=== PATIENT | female | born 1935 | race Caucasian/White ===

== ENCOUNTER 2017-03-15 13:41 | Observation (INO) | payer MEDICARE, BC ==
[2017-03-15] MEDS ORDERED: ASPIRIN 81 MG CHEW PO STA (14:01)
[2017-03-15] MEDS ORDERED: NITROGLYCERIN OINT 1 INCH/GM PACKET TOPICAL STA (14:01)
--- NOTE | 2017-03-15 14:04 | ED ---
General Adult HPI - General Chief complaint: Chest Pain Stated complaint: Chest Pain Time Seen by Provider: 03/15/17 13:50 Source: patient, RN notes reviewed Mode of arrival: wheelchair Limitations: no limitations - History of Present Illness Initial comments: Patient is a pleasant 81-year-old female presenting to the emergency department complaining of chest discomfort. Onset of symptoms was just around 20 minutes or so ago. Patient has heaviness in her chest without radiation. No associated dyspnea, nausea, or diaphoresis. Patient did have mild headache earlier in the day however this has resolved. Discomfort at this time is between mild and medium. Patient refuses nitroglycerin pills or pain medicine. - Related Data Home Medications Medication Instructions Recorded Confirmed Aspirin [Adult Low Dose Aspirin EC] 81 mg PO DAILY 03/15/17 03/15/17 Atenolol 25 mg PO BID 03/15/17 03/15/17 Atorvastatin Calcium [Lipitor] 20 mg PO DAILY 03/15/17 03/15/17 Clopidogrel Bisulfate [Plavix] 75 mg PO DAILY 03/15/17 03/15/17 Estrogens, Conjugated [Premarin] 0.3 mg PO MOWEFR 03/15/17 03/15/17 Levothyroxine Sodium [Synthroid] 100 mcg PO DAILY 03/15/17 03/15/17 Losartan Potassium [Cozaar] 25 mg PO DAILY 03/15/17 03/15/17 Multivits-Min/Iron/FA/Lutein 1 tab PO DAILY 03/15/17 03/15/17 [Centrum Silver Women Tablet] Pioglitazone [Actos] 15 mg PO Q2D 03/15/17 03/15/17 Allergies Allergy/AdvReac Type Severity Reaction Status Date / Time Sulfa (Sulfonamide Allergy Rash/Hives Verified 03/15/17 14:27 Antibiotics) Review of Systems ROS Statement: Those systems with pertinent positive or pertinent negative responses have been documented in the HPI. ROS Other: All systems not noted in ROS Statement are negative. Constitutional: Denies: fever Eyes: Denies: eye pain ENT: Denies: ear pain Respiratory: Denies: cough, dyspnea Cardiovascular: Reports: chest pain Endocrine: Denies: fatigue Gastrointestinal: Denies: abdominal pain Genitourinary: Denies: urgency Musculoskeletal: Denies: back pain Skin: Denies: rash Neurological: Reports: headache (Earlier in the day) Past Medical History Past Medical History: Cancer, Chest Pain / Angina, Diabetes Mellitus, Hyperlipidemia, Hypertension, Vascular Disorder History of Any Multi-Drug Resistant Organisms: None Reported Past Surgical History: Cholecystectomy, Coronary Bypass/CABG, Hernia Repair, Hysterectomy Past Psychological History: No Psychological Hx Reported Smoking Status: Never smoker Past Alcohol Use History: None Reported Past Drug Use History: None Reported General Exam Limitations: no limitations General appearance: alert, in no apparent distress Head exam: Present: atraumatic Eye exam: Present: normal appearance, PERRL ENT exam: Present: normal oropharynx Neck exam: Present: normal inspection Respiratory exam: Present: normal lung sounds bilaterally. Absent: chest wall tenderness Cardiovascular Exam: Present: regular rate, normal rhythm Expanded Peripheral pulses: 2+: Radial (R), Radial (L), Posterior Tibialis (R), Posterior Tibialis (L), Dorsalis Pedis (R), Dorsalis Pedis (L) GI/Abdominal exam: Present: soft. Absent: tenderness Extremities exam: Present: normal inspection. Absent: pedal edema, calf tenderness Neurological exam: Present: alert, CN II-XII intact. Absent: motor sensory deficit Psychiatric exam: Present: normal affect, normal mood Skin exam: Absent: rash Course Vital Signs 03/15/17 03/15/17 13:44 14:36 Temperature 98.1 F Pulse Rate 88 72 Respiratory 18 16 Rate Blood Pressure 179/77 132/61 O2 Sat by Pulse 98 99 Oximetry EKG Findings - EKG Comments: EKG Findings:: Normal sinus rhythm at 82. NV 148. QRS 78. QT 378. QTC 441. Normal axis. Normal QRS. Flattened T waves. Medical Decision Making - Medical Decision Making Patient reevaluated and resting comfortably in bed. Patient family updated on results and plan. Dr. Schaffer has been paged for admission for . Admission orders written. Cardiology consult. - Lab Data Result diagrams: 03/15/17 14:00 03/15/17 14:00 Lab Results 03/15/17 03/15/17 03/15/17 Range/Units 14:00 14:00 14:00 WBC 6.2 (3.8-10.6) k/uL RBC 4.32 (3.80-5.40) m/uL Hgb 13.0 (11.4-16.0) gm/dL Hct 40.3 (34.0-46.0) % MCV 93.3 (80.0-100.0) fL MCH 30.0 (25.0-35.0) pg MCHC 32.2 (31.0-37.0) g/dL RDW 14.5 (11.5-15.5) % Plt Count 251 (150-450) k/uL Neutrophils % 67 % Lymphocytes % 21 % Monocytes % 6 % Eosinophils % 4 % Basophils % 1 % Neutrophils # 4.1 (1.3-7.7) k/uL Lymphocytes # 1.3 (1.0-4.8) k/uL Monocytes # 0.4 (0-1.0) k/uL Eosinophils # 0.2 (0-0.7) k/uL Basophils # 0.1 (0-0.2) k/uL PT (9.0-12.0) sec INR (<1.1) APTT (22.0-30.0) sec Sodium 141 (137-145) mmol/L Potassium 4.3 (3.5-5.1) mmol/L Chloride 105 (98-107) mmol/L Carbon Dioxide 27 (22-30) mmol/L Anion Gap 9 mmol/L BUN 28 H (7-17) mg/dL Creatinine 0.76 (0.52-1.04) mg/dL Est GFR (MDRD) Af Amer >60 (>60 ml/min/1.73 sqM) Est GFR (MDRD) Non-Af >60 (>60 ml/min/1.73 sqM) Glucose 144 H (74-99) mg/dL Calcium 10.0 (8.4-10.2) mg/dL Magnesium 1.8 (1.6-2.3) mg/dL Total Bilirubin 0.4 (0.2-1.3) mg/dL AST 31 (14-36) U/L ALT 33 (9-52) U/L Alkaline Phosphatase 89 (38-126) U/L Total Creatine Kinase 38 (30-135) U/L CK-MB (CK-2) 0.6 (0.0-2.4) ng/mL CK-MB (CK-2) Rel Index 1.6 Troponin I <0.012 (0.000-0.034) ng/mL Total Protein 7.3 (6.3-8.2) g/dL Albumin 4.0 (3.5-5.0) g/dL 03/15/17 Range/Units 14:00 WBC (3.8-10.6) k/uL RBC (3.80-5.40) m/uL Hgb (11.4-16.0) gm/dL Hct (34.0-46.0) % MCV (80.0-100.0) fL MCH (25.0-35.0) pg MCHC (31.0-37.0) g/dL RDW (11.5-15.5) % Plt Count (150-450) k/uL Neutrophils % % Lymphocytes % % Monocytes % % Eosinophils % % Basophils % % Neutrophils # (1.3-7.7) k/uL Lymphocytes # (1.0-4.8) k/uL Monocytes # (0-1.0) k/uL Eosinophils # (0-0.7) k/uL Basophils # (0-0.2) k/uL PT 10.0 (9.0-12.0) sec INR 1.0 (<1.1) APTT 22.5 (22.0-30.0) sec Sodium (137-145) mmol/L Potassium (3.5-5.1) mmol/L Chloride (98-107) mmol/L Carbon Dioxide (22-30) mmol/L Anion Gap mmol/L BUN (7-17) mg/dL Creatinine (0.52-1.04) mg/dL Est GFR (MDRD) Af Amer (>60 ml/min/1.73 sqM) Est GFR (MDRD) Non-Af (>60 ml/min/1.73 sqM) Glucose (74-99) mg/dL Calcium (8.4-10.2) mg/dL Magnesium (1.6-2.3) mg/dL Total Bilirubin (0.2-1.3) mg/dL AST (14-36) U/L ALT (9-52) U/L Alkaline Phosphatase (38-126) U/L Total Creatine Kinase (30-135) U/L CK-MB (CK-2) (0.0-2.4) ng/mL CK-MB (CK-2) Rel Index Troponin I (0.000-0.034) ng/mL Total Protein (6.3-8.2) g/dL Albumin (3.5-5.0) g/dL - Radiology Data Radiology results: image reviewed (Chest x-ray shows no acute process) Critical Care Time Critical Care Time: Yes Total Critical Care Time: 31 Disposition Clinical Impression: Unstable angina pectoris Disposition: ADMITTED IP TO THIS [facility] Condition: Serious Time of Disposition: 15:46
[2017-03-15 14:33] LABS: Basophils # (A) 0.1 k/uL (0-0.2); Basophils % (A) 1 %; CH 29.4; CHCM 31.8; Eosinophils # (A) 0.2 k/uL (0-0.7); Eosinophils % (A) 4 %; HCT 40.3 % (34.0-46.0); HDW 2.28; Luc # (Auto) 0.13; Luc % (Auto) 2; Lymphocytes # (A) 1.3 k/uL (1.0-4.8); Lymphocytes % (A) 21 %; MCHC 32.2 g/dL (31.0-37.0); MCV 93.3 fL (80.0-100.0); Mean Platelet Volume 6.9; Monocytes # (A) 0.4 k/uL (0-1.0); Monocytes % (A) 6 %; Neutrophils # (A) 4.1 k/uL (1.3-7.7); Neutrophils % (A) 67 %; RBC 4.32 m/uL (3.80-5.40); RDW 14.5 % (11.5-15.5); WBC 6.2 k/uL (3.8-10.6); WBC (Perox) 6.51
--- NOTE | 2017-03-15 14:33 | XR ---
EXAMINATION TYPE: XR chest 2V DATE OF EXAM: 03/15/2017 2:30 PM COMPARISON: NONE TECHNIQUE: PA and lateral views submitted. HISTORY: Chest pain FINDINGS: The lungs are clear and there is no pneumothorax, pleural effusion, or focal pneumonia. Postsurgica l changes with atherosclerotic change aorta. IMPRESSION: 1. No acute process.
[2017-03-15 14:42] LABS: ALT 33 U/L (9-52); AST 31 U/L (14-36); Alkaline Phosphatase 89 U/L (38-126); Anion Gap 9 mmol/L; Blood Urea Nitrogen 28 mg/dL (7-17); Carbon Dioxide 27 mmol/L (22-30); Chloride 105 mmol/L (98-107); Glucose 144 mg/dL (74-99); Magnesium 1.8 mg/dL (1.6-2.3); Non-African American GFR(MDRD) >60 (>60 ml/min/1.73 sqM); Potassium 4.3 mmol/L (3.5-5.1); Sodium 141 mmol/L (137-145); Total Bilirubin 0.4 mg/dL (0.2-1.3); Total Protein 7.3 g/dL (6.3-8.2)
[2017-03-15 14:43] LABS: Partial Thromboplastin Time 22.5 sec (22.0-30.0)
[2017-03-15 14:55] LABS: Creatine Kinase 38 U/L (30-135)
[2017-03-15 15:09] LABS: Creatine Kinase MB 0.6 ng/mL (0.0-2.4); Troponin I <0.012 ng/mL (0.000-0.034)
[2017-03-15] MEDS ORDERED: HEPARIN SODIUM,PORCINE 5,000 UNIT/ML 1 ML VIAL IV ONE (15:46)
[2017-03-15] MEDS ORDERED: NITROGLYCERIN SL TABS 0.4 MG TAB SUBLINGUAL PRN (15:46)
[2017-03-15] MEDS ORDERED: HEPARIN SODIUM,PORCINE 5,000 UNIT/ML 1 ML VIAL IV PRN (15:46)
[2017-03-15] MEDS ORDERED: HEPARIN SODIUM,PORCINE/D5W PMX 25,000 UNIT in DEXTROSE/WATER 1 500ML.BAG IV SCH (16:00)
[2017-03-15] MEDS: NITROGLYCERIN OINT 1 INCH/GM PACKET TOPICAL SCH (18:55)
[2017-03-15 19:03] LABS: Creatine Kinase 35 U/L (30-135)
[2017-03-15 19:17] LABS: Creatine Kinase MB 0.5 ng/mL (0.0-2.4); Troponin I <0.012 ng/mL (0.000-0.034)
[2017-03-15] MEDS ORDERED: HYDROcodone/APAP 5-325MG 1 EACH TAB PO PRN (21:32)
[2017-03-15] MEDS ORDERED: HYDROmorphone 1 MG/ML 1 ML SYRINGE IVP PRN (21:32)
[2017-03-15] MEDS ORDERED: TEMAZEPAM 15 MG CAP PO PRN (21:32)
[2017-03-15] MEDS ORDERED: ALPRAZolam 0.25 MG TAB PO PRN (21:32)
[2017-03-15 22:44] LABS: Partial Thromboplastin Time 23.7 sec (22.0-30.0)
[2017-03-15 22:58] LABS: Creatine Kinase 35 U/L (30-135)
[2017-03-15] MEDS: ATENOLOL 25 MG TAB PO SCH (23:01)
[2017-03-15] MEDS: PANTOPRAZOLE 40 MG TABLET PO SCH (23:01)
[2017-03-15 23:12] LABS: Creatine Kinase MB 0.5 ng/mL (0.0-2.4); Troponin I <0.012 ng/mL (0.000-0.034)
[2017-03-16] MEDS: CLOPIDOGREL 75 MG TAB PO SCH ×2 (00:19→21:28)
[2017-03-16 01:03] LABS: Appearance,Urine Clear (Clear); Bilirubin,Urine Negative (Negative); Glucose,Urine (UA) Negative (Negative); Ketones,Urine Negative (Negative); Leukocyte Esterase,Urine Negative (Negative); Nitrite,Urine Negative (Negative); Protein,Urine Negative (Negative); Specific Gravity,Urine 1.011 (1.001-1.035); UA Billing (MACRO vs. MICRO) CHEM; Urobilinogen,Urine <2.0 mg/dL (<2.0)
--- NOTE | 2017-03-16 05:33 | HP ---
DATE OF ADMISSION: DATE OF SERVICE: 03/15/2017 CHIEF COMPLAINT: Chest pain. HISTORY OF PRESENT ILLNESS: This 81-year-old woman with a past medical history of CAD, history of diabetes mellitus, hypertension, hyperlipidemia, hypothyroidism, history of vertigo, history of cholecystectomy, history of CAD, CABG being followed by Dr. Coronel in the outpatient setting was complaining of chest heaviness today. The patient initially had dizziness and subsequently patient was supposed to have an appointment with Dr. Katie Dai but because of the heaviness, the patient came to [facility] and heaviness was felt in the anterior part of the chest without much radiation and without sweating or palpitation. Patient apparently was given nitro paste and as well as aspirin, which relieved the pain completely. Now currently the patient also complains of throat discomfort also. There is no history of any fever, rigors, chills. No history of headache, loss of consciousness or seizures. The initial troponins were negative and the EKG on admission showed nonspecific ST-T changes. There is no history of any fever, rigors or chills. PAST MEDICAL HISTORY: History of CAD, history of chest pain, history of diabetes mellitus, hypertension, hypothyroidism, vertigo, CAD, CABG. Medications prior to admission include: 1. Premarin 0.3 mg Monday, Monday, Monday. 2. Multivitamin 1 p.o. daily. 3. Lipitor 20 mg daily. 4. Aspirin 81 mg daily. 5. Actos 15 mg p.o. haim 2 days. 6. Cozaar 25 mg p.o. daily. 7. Synthroid 100 mcg p.o. daily. 8. Plavix 75 mg p.o. daily. 9. Atenolol 25 mg p.o. b.i.d. ALLERGIES: SULFA. FAMILY HISTORY: History of CVA, TIA, and cerebral bleed. SOCIAL HISTORY: No history of smoking. No history of alcohol intake. REVIEW OF SYSTEMS: ENT: No diminishing hearing or diminished vision. CARDIOVASCULAR: As mentioned earlier. RESPIRATORY: As mentioned earlier. GI: No nausea. : No dysuria. NERVOUS SYSTEM: No numbness or weakness. ALLERGY/IMMUNOLOGY: No history of asthma or hayfever. MUSCULOSKELETAL: As mentioned earlier. HEMATOLOGY/ONCOLOGY: No history of anemia. ENDOCRINE: Diabetes mellitus and hypothyroidism present. CONSTITUTIONAL: As mentioned earlier. DERMATOLOGICAL: Negative. RHEUMATOLOGY: Negative. PSYCHIATRY: As mentioned earlier. PHYSICAL EXAMINATION: The patient is alert and oriented x3. Pulse is 67, blood pressure 140/62, respirations 16, temperature 97.5, pulse ox 99% on 2 L. HEENT: Conjunctivae normal. Oral mucosa moist. NECK: No jugular venous distention. No carotid bruit. No lymph node enlargement. CARDIOVASCULAR: S1 and S2, muffled. No S3, no S4. Ejection systolic murmur left sternal border present. RESPIRATORY: Breath sounds diminished at the bases. No rhonchi, no crackles. ABDOMEN: Soft, nontender. No mass palpable. No hepatosplenomegaly. LEGS: No edema, no swelling. NERVOUS SYSTEM: Higher function as mentioned. Moves all 4 limbs. No focal motor or sensory deficit. LYMPHATICS: No lymphadenopathy of neck, axillae or groin. SKIN: No ulcers, rashes or bleeding. LABS: CBC within normal limits. PT, INR is normal. BUN is 28. Glucose 144. ASSESSMENT: 1. Chest heaviness, possible unstable angina. 2. History of coronary artery disease, coronary artery bypass grafting. 3. History of diabetes mellitus type 2. 4. Hypertension, essential. 5. Hyperlipidemia. 6. Hypothyroidism. 7. History of vertigo. 8. History of cholecystectomy. 9. History of hernia repair. 10. History of motion sickness. 11. FULL CODE. RECOMMENDATIONS AND DISCUSSION: This 81-year-old woman who presented with multiple complex medical issues, we will monitor the patient, continue the current medications, unstable angina protocol, symptomatic treatment will be provided nitro p.r.n. Cardiology consultation. Will obtain the reports from the cardiology office and otherwise resume the home medications. Further recommendations to follow. A copy of dictation forwarded to Dr. Coronel who is the primary physician.
[2017-03-16 07:07] LABS: Basophils # (A) 0.1 k/uL (0-0.2); Basophils % (A) 1 %; CH 28.9; CHCM 31.3; Eosinophils # (A) 0.3 k/uL (0-0.7); Eosinophils % (A) 5 %; HCT 36.9 % (34.0-46.0); HDW 2.27; HGB 11.7 gm/dL (11.4-16.0); Luc # (Auto) 0.14; Luc % (Auto) 2; Lymphocytes # (A) 1.7 k/uL (1.0-4.8); Lymphocytes % (A) 30 %; MCH 29.5 pg (25.0-35.0); MCHC 31.7 g/dL (31.0-37.0); Mean Platelet Volume 6.5; Monocytes # (A) 0.4 k/uL (0-1.0); Monocytes % (A) 7 %; Neutrophils # (A) 3.2 k/uL (1.3-7.7); Neutrophils % (A) 56 %; RBC 3.96 m/uL (3.80-5.40); RDW 14.5 % (11.5-15.5); WBC 5.7 k/uL (3.8-10.6); WBC (Perox) 5.68
[2017-03-16 07:20] LABS: Anion Gap 9 mmol/L; Blood Urea Nitrogen 25 mg/dL (7-17); Calcium 9.4 mg/dL (8.4-10.2); Carbon Dioxide 25 mmol/L (22-30); Chloride 108 mmol/L (98-107); Cholesterol 137 mg/dL (<200); Glucose 98 mg/dL (74-99); HDL Cholesterol 57 mg/dL (40-60); Non-African American GFR(MDRD) >60 (>60 ml/min/1.73 sqM); Potassium 4.3 mmol/L (3.5-5.1); Sodium 142 mmol/L (137-145); Triglycerides 113 mg/dL (<150)
--- NOTE | 2017-03-16 08:58 | P.CRDCN ---
History of Present Illness Consult date: 03/16/17 Chief complaint: Chest discomfort History of present illness: This is a pleasant 81-year-old female patient who sees Dr. ELEAZAR Dai as an outpatient with a known history of CAD and prior CABG and stents with unknown details at this point, diabetes, hypertension, and dyslipidemia presented to the hospital complaining of chest discomfort. The patient was on her way to the office yesterday to see Dr. ELEAZAR Dai when she started experiencing chest discomfort and she decided to come to the emergency room. The cardiac enzymes came in to be unremarkable. The EKG showed sinus rhythm with dynamic changes consistent with ischemia. I recommended proceeding with heart catheterization to rule out any severe underlying CAD. Past Medical History Past Medical History: Coronary Artery Disease (CAD), Cancer, Chest Pain / Angina , Diabetes Mellitus, Hyperlipidemia, Hypertension, Thyroid Disorder, Vascular Disorder Additional Past Medical History / Comment(s): vertigo,"arrythmia-takes med to make heart beat stronger/slower", hiatal hernia, vison poor rt eye told" i have a crater" History of Any Multi-Drug Resistant Organisms: None Reported Past Surgical History: Cholecystectomy, Coronary Bypass/CABG, Hernia Repair, Hysterectomy Additional Past Surgical History / Comment(s): colonoscopy/polypectomy(benign), triple vessel cabg, sx for hiatal hernia , not sure if they took appendix w/ hysterectomy, lt cataract removed Past Anesthesia/Blood Transfusion Reactions: Motion Sickness Additional Past Anesthesia/Blood Transfusion Reaction / Comment(s): vertigo Past Psychological History: No Psychological Hx Reported Additional Psychological History / Comment(s): pt is independant, lives with her spouse in a ranch style home total of 2 steps. no pets. they are snowbirds to [place] yearly. no outside services. has a walker if needed Smoking Status: Never smoker Past Alcohol Use History: None Reported Past Drug Use History: None Reported - Past Family History Mother Family Medical History: CVA/TIA Father Additional Family Medical History / Comment(s): cerebral bleed Medications and Allergies Home Medications Medication Instructions Recorded Confirmed Type Aspirin [Adult Low Dose Aspirin EC] 81 mg PO DAILY 03/15/17 03/15/17 History Atenolol 25 mg PO BID 03/15/17 03/15/17 History Atorvastatin Calcium [Lipitor] 20 mg PO DAILY 03/15/17 03/15/17 History Clopidogrel Bisulfate [Plavix] 75 mg PO DAILY 03/15/17 03/15/17 History Estrogens, Conjugated [Premarin] 0.3 mg PO MOWEFR 03/15/17 03/15/17 History Levothyroxine Sodium [Synthroid] 100 mcg PO DAILY 03/15/17 03/15/17 History Losartan Potassium [Cozaar] 25 mg PO DAILY 03/15/17 03/15/17 History Multivits-Min/Iron/FA/Lutein 1 tab PO DAILY 03/15/17 03/15/17 History [Centrum Silver Women Tablet] Pioglitazone [Actos] 15 mg PO Q2D 03/15/17 03/15/17 History Allergies Allergy/AdvReac Type Severity Reaction Status Date / Time Sulfa (Sulfonamide Allergy Rash/Hives Verified 03/15/17 14:27 Antibiotics) Physical Exam Vitals: Vital Signs Temp Pulse Pulse Resp BP BP Pulse Ox 03/16/17 04:00 98.5 F 67 18 142/70 96 03/16/17 00:00 14 03/15/17 20:00 14 03/15/17 19:47 98.7 F 83 14 133/71 96 03/15/17 18:00 97.7 F 69 16 148/68 98 03/15/17 17:48 97.5 F L 67 16 140/62 99 03/15/17 16:48 97.8 F 65 16 144/66 100 03/15/17 16:00 98.6 F 65 16 155/67 98 Intake and Output 03/15/17 03/16/17 03/16/17 22:59 06:59 14:59 Intake Total 240 269.036 Balance 240 269.036 Intake: Intake, IV Titration 269.036 Amount Heparin Sodium,Porcine/ 269.036 D5w Pmx 25,000 unit In Dextrose/Water 1 500ml. bag @ 12 UNITS/KG/HR 19. 59 mls/hr IV .Q24H [facility] Rx #:[id number] Oral 240 Other: # Voids 1 Weight 81.647 kg - Constitutional General appearance: no acute distress - Respiratory Respiratory: bilateral: CTA - Cardiovascular Rhythm: regular Heart sounds: normal: S1, S2 Results 03/16/17 06:43 03/16/17 06:43 Cardiac Enzymes 03/15/17 03/15/17 Range/Units 18:09 22:08 CK-MB (CK-2) 0.5 0.5 (0.0-2.4) ng/mL Troponin I <0.012 <0.012 (0.000-0.034) ng/mL Coagulation 03/15/17 03/15/17 03/16/17 Range/Units 18:09 22:08 06:48 APTT 22.8 23.7 24.4 (22.0-30.0) sec Lipids 03/16/17 Range/Units 06:43 Triglycerides 113 (<150) mg/dL Cholesterol 137 (<200) mg/dL HDL Cholesterol 57 (40-60) mg/dL CBC 03/16/17 Range/Units 06:43 WBC 5.7 (3.8-10.6) k/uL RBC 3.96 (3.80-5.40) m/uL Hgb 11.7 (11.4-16.0) gm/dL Hct 36.9 (34.0-46.0) % Plt Count 229 (150-450) k/uL Comprehensive Metabolic Panel 03/16/17 Range/Units 06:43 Sodium 142 (137-145) mmol/L Potassium 4.3 (3.5-5.1) mmol/L Chloride 108 H (98-107) mmol/L Carbon Dioxide 25 (22-30) mmol/L BUN 25 H (7-17) mg/dL Creatinine 0.77 (0.52-1.04) mg/dL Glucose 98 (74-99) mg/dL Calcium 9.4 (8.4-10.2) mg/dL Current Medications Generic Name Dose Route Start Last Admin Trade Name Freq PRN Reason Stop Dose Admin Hydrocodone Bitart/Acetaminophen 1 each 03/15/17 21:32 [place] 5-325 PO Q6HR PRN Pain Alprazolam 0.25 mg 03/15/17 21:32 03/16/17 00:22 Xanax PO 0.25 mg TID PRN Administration Anxiety Aspirin 325 mg 03/16/17 09:00 Aspirin PO DAILY [facility] Atenolol 25 mg 03/15/17 21:00 03/15/17 23:01 Tenormin PO Not Given BID [facility] Atorvastatin Calcium 20 mg 03/16/17 09:00 Lipitor PO DAILY [facility] Clopidogrel Bisulfate 75 mg 03/15/17 23:15 03/16/17 00:19 Plavix PO 75 mg HS LOW Administration Estrogens Conjugated 0.3 mg 03/17/17 09:00 Premarin PO MOWEFR [facility] Heparin Sodium (Porcine) 0 unit 03/15/17 15:46 03/16/17 06:25 Heparin IV 4,000 unit Q6HR PRN Administration Low PTT Protocol Hydromorphone HCl 0.5 mg 03/15/17 21:32 Dilaudid IVP Q6HR PRN Severe Pain Heparin Sodium/Dextrose 25,000 500 mls @ 19.59 mls/hr 03/15/17 16:00 06:25 unit/ IV Solution IV 14.94 units/kg/hr .Q24H LOW 24.4 mls/hr Protocol Titration 12 UNITS/KG/HR Levothyroxine Sodium 100 mcg 03/16/17 06:30 Synthroid PO 0630 [facility] Losartan Potassium 25 mg 03/16/17 09:00 Cozaar PO DAILY [facility] Multivitamins 1 each 03/16/17 12:00 Theragran PO DAILY@1200 [facility] Nitroglycerin 1 inch 03/15/17 18:00 03/15/17 18:55 Nitro-Bid Oint TOPICAL Not Given Q6HR [facility] Nitroglycerin 0.4 mg 03/15/17 15:46 03/15/17 20:51 Nitrostat SUBLINGUAL 0.4 mg Q5M PRN Administration Chest Pain Pantoprazole Sodium 40 mg 03/15/17 21:45 03/15/17 23:01 Protonix PO 40 mg [id number] [facility] Administration Pioglitazone HCl 15 mg 03/17/17 09:00 Actos PO Q2D [facility] Sodium Chloride 10 ml 03/15/17 21:00 03/16/17 00:19 Saline Flush IV Not Given BID [facility] Temazepam 15 mg 03/15/17 21:32 Restoril PO HS PRN Insomnia Intake and Output 03/15/17 03/16/17 03/16/17 22:59 06:59 14:59 Intake Total 240 269.036 Balance 240 269.036 Intake: Intake, IV Titration 269.036 Amount Heparin Sodium,Porcine/ 269.036 D5w Pmx 25,000 unit In Dextrose/Water 1 500ml. bag @ 12 UNITS/KG/HR 19. 59 mls/hr IV .Q24H [facility] Rx #:[id number] Oral 240 Other: # Voids 1 Weight 81.647 kg 03/16/17 06:43 03/16/17 06:43 Assessment and Plan Plan: Assessment #1 chest discomfort #2 abnormal EKG concerning for ischemia #3 multiple risk factors for CAD Plan #1 proceeding with heart catheterization #2 further recommendation to follow that
[2017-03-16] MEDS ORDERED: ASPIRIN 325 MG TAB PO SCH (09:00)
[2017-03-16] MEDS ORDERED: ATORVASTATIN 20 MG TAB PO SCH (09:00)
[2017-03-16] MEDS ORDERED: CLOPIDOGREL 75 MG TAB PO SCH (09:00)
[2017-03-16] MEDS ORDERED: SODIUM CHLORIDE 0.9% 1,000 ML in EMPTY BAG 1 BAG IV ONE (09:25)
[2017-03-16] MEDS ORDERED: ALPRAZolam 0.25 MG TAB PO PRN (09:25)
[2017-03-16] MEDS ORDERED: ALPRAZolam 0.5 MG TAB PO PRN (09:25)
[2017-03-16] MEDS ORDERED: ASPIRIN 325 MG TAB PO STA (09:25)
[2017-03-16] MEDS ORDERED: ATORVASTATIN 80 MG TAB PO STA (09:25)
[2017-03-16] MEDS: NITROGLYCERIN OINT 1 INCH/GM PACKET TOPICAL SCH ×3 (10:07→20:38)
[2017-03-16] MEDS: ATENOLOL 25 MG TAB PO SCH ×2 (10:12→21:28)
[2017-03-16] MEDS: LEVOTHYROXINE 100 MCG TAB PO SCH (10:12)
[2017-03-16] MEDS: PANTOPRAZOLE 40 MG TABLET PO SCH (10:12)
[2017-03-16] MEDS: LOSARTAN 25 MG TAB PO SCH (10:13)
[2017-03-16] MEDS ORDERED: LIDOCAINE 2% INJ 20 MG/ML (20 ML MDV) ONE (10:49)
[2017-03-16] MEDS ORDERED: MIDAZOLAM 2 MG/2 ML VIAL ONE (10:50)
[2017-03-16] MEDS ORDERED: diphenhydrAMINE 50 MG/ML 1 ML VIAL ONE (10:50)
[2017-03-16] MEDS ORDERED: MIDAZOLAM 2 MG/2 ML VIAL IVP ONE (10:55)
[2017-03-16] MEDS ORDERED: diphenhydrAMINE 50 MG/ML 1 ML VIAL IVP ONE (10:55)
[2017-03-16] MEDS ORDERED: LIDOCAINE 2% INJ 20 MG/ML SQ ONE (10:58)
[2017-03-16] MEDS ORDERED: RX INFO: IV CONTRAST WAS GIVEN 1 EACH MISC MISCELLANE PRN ×2 (11:18→11:36)
[2017-03-16] MEDS ORDERED: HYDROmorphone 2 MG/ML 1 ML SYRINGE ONE (11:23)
[2017-03-16] MEDS ORDERED: HYDROmorphone 2 MG/ML 1 ML SYRINGE IVP ONE (11:25)
[2017-03-16] MEDS ORDERED: SODIUM CHLORIDE 0.9% 1,000 ML IV ONE (11:26)
[2017-03-16] MEDS ORDERED: IOHEXOL 350 MG/ML 100 ML BOTTLE INJ ONE (11:26)
[2017-03-16] MEDS ORDERED: MULTIVITAMINS, THERA 1 EACH TAB PO SCH (12:00)
[2017-03-16 12:05] VITALS: RESP 16
[2017-03-16] MEDS: NITROGLYCERIN SL TABS 0.4 MG TAB SUBLINGUAL PRN ×2 (12:20→12:27)
[2017-03-16] MEDS: SODIUM CHLORIDE 0.9% 1,000 ML IV SCH (12:45)
--- NOTE | 2017-03-16 13:12 | CT ---
EXAMINATION TYPE: CT angio chest DATE OF EXAM: 03/16/2017 1:05 PM COMPARISON: NONE HISTORY: Chest pressure, elevated d dimer CT DLP: 521 mGycm CONTRAST: CT chest with contrast and 3D reconstruction with MIP imaging is performed with IV Contrast, patient injected with 80 mL of Visipaque 320. Contrast-enhanced CT of the chest was performed through the course of the pulmonary arteries with mary g and mediastinal window settings submitted. 3D reconstruction with MIP imaging was also performed. PULMONARY ARTERIES: The pulmonary arteries and their major tributaries are patent. I do not see lindsey dence for sizable filling defect to suggest pulmonary embolic process. LUNGS: The lungs are clear and free of consolidation. Nonspecific groundglass infiltrates. No evidenc e for atelectasis. No pulmonary nodule or mass is detected. No pleural effusion. MEDIASTINUM: Mild ectasia thoracic aorta without aneurysm. Atheromatous change. No evidence for disse ction. Coronary artery calcifications. The heart is mildly enlarged. No evidence for mediastinal mas s. No mediastinal lymph nodes greater than 1cm. HILAR STRUCTURES: No evidence for mass. No hilar lymph nodes greater than 1 cm. UPPER ABDOMEN: No significant abnormality is seen. IMPRESSION: 1. No evidence for Pulmonary embolism at this time. 2. Thoracic aorta fails demonstrate evidence for dissection or aneurysm.
--- NOTE | 2017-03-16 21:48 | CC ---
DATE OF SERVICE: 03/16/2017 PROCEDURE: Left heart catheterization, coronary angiography and selective injection of bypass grafts. PERFORMED BY: Dr. Katie Dai. CLINICAL INFORMATION: Mrs. Eloina Patel is an 81-year-old elderly lady with a type 2 diabetes, hypertension, hyperlipidemia and CAD with a previous aortocoronary bypass surgery performed in March 2013 with a HOBSON to LAD and 2 vein grafts to the 2 branches of circumflex coronary artery. At that time, RCA was dominant disease-free. Left main was 70%. She had a significant LAD lesion as well in 2 areas. She has been doing fairly well, but came to the hospital yesterday. On her way to see me in the office, she had developed more chest pain, came to the hospital. Troponins are negative, but EKG revealed some ST and T wave abnormality in lateral leads. Given this, she was advised coronary angiography. There was no significant troponin elevation. PROCEDURE NOTE: Under local anesthesia and strict aseptic precautions, a 6-Portuguese introducer was placed in the right femoral artery. Standard left Negin catheter was used to perform selective coronary angiography of the left system. A KYLEE catheter was used to perform selective coronary angiography of the RCA, HOBSON as well as the vein graft to the obtuse marginal 1. An AR2 catheter was used to perform the selective injection of the stump to the second obtuse marginal. LV gram was not performed. LV pressures were checked. Patient then had a Perclose device to secure hemostasis, developed some oozing and therefore a FemoStop was applied. She was also advised to have a CT angiography to rule out pulmonary embolism and she will have that procedure today. CARDIAC CATHETERIZATION FINDINGS: The left ventricular end-diastolic pressure was 18 mmHg without any gradient across the aortic valve. CORONARY ANGIOGRAPHIC FINDINGS: Left main coronary artery: There is an ostial 70% left main, beyond which the caliber improves and bifurcates into LAD and circumflex. The left main therefore has an ostial 70% lesion. Left anterior descending coronary artery: This vessel has 2 tight lesions and then the vessel is totally occluded in the mid portion without much antegrade flow. Left posterior circumflex coronary artery: Technically, a nondominant vessel; gives off 2 obtuse marginal branches. The first obtuse marginal has retrograde filling of the vein graft. Second obtuse marginal, she he has a stump that is also evident, but the stump does not flow much in the retrograde direction. Right coronary artery: Dominant vessel, minor irregularities. No significant disease. Distally it bifurcates into larger PDA and small PLV, both of which supply a sizable amount of myocardium. Saphenous vein graft to the circumflex marginal 1: This graft is widely patent, is somewhat small in size, but the flow is a brisk. It seems to opacify the entire obtuse marginal branch. There is some competitive flow that is evident. However, it fills up the entire first obtuse marginal all the way to the periphery and obtuse marginal itself has minor diffuse irregularities. Saphenous vein graft to the second obtuse marginal branch of circumflex: This graft appears to be totally occluded and is seen as a stump without much antegrade flow. Left internal mammary artery graft to LAD: This graft is widely patent with a very good flow throughout the entire graft at the origin and insertion site. There is no significant disease and the opacified LAD is also free of significant disease, gives off septal branches, runs all the way to the apex, supplies a sizable amount of myocardium. The HOBSON graft to LAD is therefore widely patent with good flow. LEFT VENTRICULOGRAM: This was not performed. FINAL IMPRESSION: This patient has a total occlusion of vein graft to the second obtuse marginal. The first obtuse marginal graft is patent with some competitive flow. Left internal mammary artery to left anterior descending artery is widely patent. Right coronary artery is dominant and disease-free. Filling pressures are mildly elevated, but left ventriculogram was not performed. RECOMMENDATIONS: Findings were discussed with the patient and family. I am recommending continued medical therapy with risk factor modification. The vein graft that is occluded to the second obtuse marginal still has good flow antegrade from the [place] circulation. This was explained to the patient and family. The HOBSON is widely patent. Given the fact patient had chest pain and D-dimer elevation, even though the pain did not seem pleuritic, are suggestive of pulmonary embolism. Given the elevated D-dimer and relatively sedentary status, I am recommending a CT angiography to be performed. The patient received about 80 mL of contrast by me and she will receive another [address] angiography. This was explained to the patient and family and she will have the procedure done today. Moderate conscious sedation was provided for a total duration of 35 minutes. The patient tolerated it very well and she was monitored closely.
--- NOTE | 2017-03-16 21:50 | LTR ---
March 16, 2017 RE: AmandaEloina Dear Dr. Coronel: Thank you for allowing me to participate in the care of Mrs. Patel. I am pleased to report to you that she does not have any significant CAD that requires intervention. The second obtuse marginal graft closure is probably because of competitive flow and we will pursue medical therapy. However, I am recommending a CT angiography to rule out pulmonary embolism. I expect the patient will be discharged tomorrow if she remains stable. She will also be hydrated and I will check a CBC and BMP in the morning as well. Thank you for your referral and please do call for questions. With kindest regards. Sincerely yours, JANET YU MD
[2017-03-17] MEDS: NITROGLYCERIN OINT 1 INCH/GM PACKET TOPICAL SCH ×2 (01:26→06:47)
[2017-03-17] MEDS: SODIUM CHLORIDE 0.9% 1,000 ML IV SCH (01:26)
[2017-03-17 04:15] VITALS: PULSE 64
[2017-03-17] MEDS: LEVOTHYROXINE 100 MCG TAB PO SCH (06:47)
[2017-03-17] MEDS: PANTOPRAZOLE 40 MG TABLET PO SCH (06:47)
[2017-03-17 07:12] LABS: Basophils % (A) 1 %; CHCM 30.8; Eosinophils # (A) 0.2 k/uL (0-0.7); Eosinophils % (A) 4 %; HDW 2.29; HGB 11.5 gm/dL (11.4-16.0); Hypochromasia Slight; Luc # (Auto) 0.12; Luc % (Auto) 2; Lymphocytes # (A) 1.2 k/uL (1.0-4.8); Lymphocytes % (A) 21 %; MCH 29.4 pg (25.0-35.0); MCV 94.9 fL (80.0-100.0); Mean Platelet Volume 6.4; Monocytes # (A) 0.4 k/uL (0-1.0); Monocytes % (A) 7 %; Neutrophils # (A) 3.9 k/uL (1.3-7.7); Neutrophils % (A) 66 %; RDW 14.4 % (11.5-15.5); WBC 5.9 k/uL (3.8-10.6); WBC (Perox) 5.88
[2017-03-17 07:22] LABS: Anion Gap 8 mmol/L; Blood Urea Nitrogen 17 mg/dL (7-17); Calcium 8.7 mg/dL (8.4-10.2); Carbon Dioxide 21 mmol/L (22-30); Chloride 110 mmol/L (98-107); Glucose 90 mg/dL (74-99); Non-African American GFR(MDRD) >60 (>60 ml/min/1.73 sqM); Potassium 4.3 mmol/L (3.5-5.1); Sodium 139 mmol/L (137-145)
[2017-03-17 07:46] VITALS: BP 135/54; TEMP 98.1
--- NOTE | 2017-03-17 08:25 | P.PN ---
Subjective Principal diagnosis: Progressive dyspnea This is a pleasant 81-year-old female patient who sees Dr. ELEAZAR Dai as an outpatient with a known history of CAD and prior CABG and stents with unknown details at this point, diabetes, hypertension, and dyslipidemia presented to the hospital complaining of chest discomfort. The patient was on her way to the office yesterday to see Dr. ELEAZAR Dai when she started experiencing chest discomfort and she decided to come to the emergency room. The cardiac enzymes came in to be unremarkable. The EKG showed sinus rhythm with dynamic changes consistent with ischemia. The patient underwent a heart catheterization by Dr. ELEAZAR Dai and that showed occluded vein graft to first obtuse marginal branch. The decision was to treat the patient medically. She underwent a CTA of the chest which showed no PE. The heart catheterization also showed elevated left ventricular diastolic pressure. We will follow-up with with the echocardiogram which was performed today. I am going to start the patient on diuretics with Lasix by mouth in view of the elevated LVEDP. If the echo showed no significant finding the patient can be discharged home. Objective - Vital Signs Vital signs: Vital Signs Temp 98.1 F 03/17/17 07:45 Pulse 64 03/17/17 07:45 Resp 16 03/17/17 07:45 BP 135/54 03/17/17 07:45 Pulse Ox 97 03/17/17 07:45 Intake & Output 03/16/17 03/17/17 03/17/17 18:59 06:59 18:59 Intake Total 490 Balance 490 Intake: IV 250 Oral 240 Other: Voiding Method Toilet Toilet # Voids 1 - Constitutional General appearance: Present: no acute distress - Respiratory Respiratory: bilateral: CTA - Cardiovascular Rhythm: regular Heart sounds: normal: S1, S2 - Labs CBC & Chem 7: 03/17/17 06:48 03/17/17 06:48 Labs: Abnormal Lab Results - Last 24 Hours (Table) 03/17/17 Range/Units 06:48 Chloride 110 H (98-107) mmol/L Carbon Dioxide 21 L (22-30) mmol/L Assessment and Plan Plan: Assessment #1 chest discomfort #2 abnormal EKG concerning for ischemia #3 multiple risk factors for CAD Plan #1 she underwent a heart catheterization which showed occluded vein graft to OM #2 the computed tomography scan of the chest showed no PE #3 add Lasix to the current medical treatment #4 follow-up with the echocardiogram
[2017-03-17] MEDS: ATENOLOL 25 MG TAB PO SCH (08:51)
[2017-03-17] MEDS: LOSARTAN 25 MG TAB PO SCH (08:54)
[2017-03-17] MEDS ORDERED: ESTROGENS, CONJUGATED 0.3 MG TAB PO SCH (09:00)
[2017-03-17] MEDS ORDERED: ASPIRIN 325 MG TAB PO SCH (09:00)
[2017-03-17] MEDS ORDERED: PIOGLITAZONE 15 MG TAB PO SCH (09:00)
[2017-03-17] MEDS ORDERED: FUROSEMIDE 40 MG TAB PO SCH (09:00)
[2017-03-17] MEDS ORDERED: ATORVASTATIN 20 MG TAB PO SCH (09:00)
--- NOTE | 2017-03-17 10:20 | DS ---
DATE OF ADMISSION: 03/15/2017 DATE OF DISCHARGE: FINAL DIAGNOSES: 1. Possibly musculoskeletal or coronary vessel spasm, status post cardiac catheterization. 2. History of coronary artery disease, coronary artery bypass grafting. 3. History of diabetes mellitus type 2. 4. Myocardial infarction ruled out. 5. Hypertension, essential. 6. Hyperlipidemia. 7. Hypothyroidism. 8. History of vertigo. 9. History of cholecystectomy. 10. History of hernia repair. 11. History of motion sickness. 12. FULL CODE. DISCHARGE DISPOSITION: The patient will be discharged in stable condition with guarded prognosis. Discharge cleared by Cardiology. HISTORY OF PRESENT ILLNESS: This 81-year-old woman with a past medical history of multiple medical problems admitted with chest heaviness, myocardial infarction ruled out. The patient was monitored closely. Patient underwent cardiac catheterization, which did not show acute disease. Final report is pending at this time. Otherwise, the patient also had chest CTA, which showed no evidence of pulmonary embolism and thoracic aorta fails to demonstrate any evidence for dissection or aneurysm. On exam, vitals are stable. CARDIOVASCULAR: S1 and S2 soft. ABDOMEN: Soft. NERVOUS SYSTEM: No focal deficits. I recommended empiric treatment and continue to follow up in the outpatient setting and also with Cardiology. DISCHARGE ADVICE: 1. Diet is cardiac. 2. Activity limited until followup. 3. Follow up with Dr. Katie Dai in one week. 4. Follow up with Dr. Coronel in 2 to 3 days. 5. Follow-up labs with Dr. Coronel. MEDICATIONS: 1. Ecotrin 81 mg p.o. daily. 2. Atenolol 25 mg p.o. b.i.d. 3. Lipitor 20 mg p.o. daily. 4. Plavix 75 mg p.o. daily. 5. Conjugated estrogens 0.3 mg p.o. Monday, Monday, Monday. 6. Synthroid 100 mcg p.o. daily. 7. Cozaar 25 mg p.o. daily. 8. Multivitamins 1 p.o. daily. 9. Nitrostat 0.4 sublingual p.r.n. 10. Protonix 40 mg p.o. daily. 11. Actos 15 mg p.o. q.2 days. Once again, the patient will be discharged in stable condition with guarded prognosis.
--- NOTE | 2017-03-17 11:51 | ECHOF ---
Referral Reason:CAD, assess LV FX, S/P CABG. ACS MEASUREMENTS -------- HEIGHT: 162.6 cm WEIGHT: 81.7 kg BP: 151/56 IVSd: 1.3 cm (0.6 - 1.1) LVIDd: 4.0 cm (3.9 - 5.3) LVPWd: 1.2 cm (0.6 - 1.1) IVSs: 1.9 cm LVIDs: 2.5 cm LVPWs: 1.8 cm LAESV Index (A-L): 22.37 ml/m Ao Diam: 3.4 cm (2.0 - 3.7) AV Cusp: 2.0 cm (1.5 - 2.6) LA Diam: 2.8 cm (2.7 - 3.8) MV EXCURSION: 14.967 mm (> 18.000) MV EF SLOPE: 53 mm/s (70 - 150) EPSS: 0.6 cm MV E Vernon: 0.92 m/s MV DecT: 372 ms MV A Vernon: 1.39 m/s MV E/A Ratio: 0.66 RAP: 5.00 mmHg RVSP: 19.78 mmHg FINDINGS -------- Sinus rhythm. This was a technically adequate study. Left ventricular wall thickness is normal. Overall left ventricular systolic function is normal with, an EF between 60 - 65 %. The right ventricle is normal in size and function. Normal LA size by volume 22+/-6 ml/m2. The right atrium is normal in size. Aortic valve is trileaflet and is mildly thickened. There is no evidence of aortic regurgitation. There is no evidence of aortic stenosis. The mitral valve leaflets are mildly thickened. Mild mitral annular calcification present. There is trace mitral regurgitation. Trace tricuspid regurgitation present. There is no evidence of pulmonary hypertension. The right ventricular systolic pressure, as measured by Doppler, is 19.78mmHg. Pulmonic valve appears structurally normal. The aortic root size is normal. The ascending aorta is mildly dilated measuring up to 3.7cm. There is no pericardial effusion. CONCLUSIONS -------- 1. Sinus rhythm. 2. The right ventricular systolic pressure, as measured by Doppler, is 19.78mmHg. 3. The aortic root size is normal. 4. The ascending aorta is mildly dilated measuring up to 3.7cm. 5. There is no pericardial effusion. 6. Overall left ventricular systolic function is normal with, an EF between 60 - 65 %. 7. Normal LA size by volume 22+/-6 ml/m2. 8. Aortic valve is trileaflet and is mildly thickened. 9. The mitral valve leaflets are mildly thickened. 10. Mild mitral annular calcification present. 11. There is trace mitral regurgitation. 12. Trace tricuspid regurgitation present. 13. There is no evidence of pulmonary hypertension. CHERRY SORTER: Almas Reza RDCS
--- NOTE | 2017-03-18 10:13 | PN ---
DATE OF SERVICE: 03/16/2017 This is an 81-year-old woman with a past medical history of multiple medical problems admitted with chest pain, myocardial infarction ruled out, Cardiology performed cardiac catheterization that showed some occluded graft but otherwise medical treatment was required. No chest pain, no palpitation, no fever. On exam, alert and oriented x3. The pulse is 58, blood pressure 127/54, respirations 16, temperature is 98.1, pulse ox is 96% on room air. HEENT: Conjunctivae normal. NECK: Normal. CARDIOVASCULAR: S1, S2, muffled. RESPIRATORY: Breath sounds diminished at the bases. No rhonchi, no crackles. Abdomen is soft, nontender. LEGS: No edema, no swelling. NERVOUS SYSTEM: No focal deficits. LABS: CBC within normal limits, sodium 139, potassium 4.3. ASSESSMENT: 1. Chest pain, possible musculoskeletal pain, possible coronary vessel spasm, status post cardiac catheterization. 2. History of coronary artery disease, coronary artery bypass grafting. 3. History of diabetes mellitus type 2. 4. Myocardial infarction ruled out. 5. Hypertension, essential. 6. Hyperlipidemia. 7. Hypothyroidism. 8. History of vertigo. 9. History of cholecystectomy. 10. History of hernia repair. 11. History of motion sickness. 12. FULL CODE. RECOMMENDATION: Recommend to continue with the current medication, continue with symptomatic treatment. Otherwise, I would recommend a CTA as recommended by Cardiac Surgery. Nitro p.r.n. See orders for further details. Further recommendations to follow.
--- NOTE | 2017-03-21 14:51 | DS ---
DATE OF ADMISSION: 03/15/2017 DATE OF DISCHARGE: 03/17/2017 DATE OF SERVICE: 03/17/2017 This 81-year-old woman was admitted with chest pain, possibly musculoskeletal or even could be muscle spasm. Seen and evaluated the patient previously. Please refer to my previous dictation yesterday for complete list of diagnosis. On exam, vitals are stable. CARDIOVASCULAR SYSTEM: S1, S2, muffled. ABDOMEN: Soft. NERVOUS SYSTEM: No focal deficits. Please refer to the previous dictation for list of medications. Please add Lasix as recommended by Cardiology.
== END 2017-03-17 13:07 | disposition home or self-care (01) ==
LOC: EC 13:41 → 3OBS 15:46
PROVIDERS: ADMIT Hospitalist; ATTEND Hospitalist
DX: I25.810 Atherosclerosis of coronary artery bypass graft(s) without angina pectoris (principal); R07.9 Chest pain, unspecified; Z95.1 Presence of aortocoronary bypass graft; E11.9 Type 2 diabetes mellitus without complications; I10 Essential (primary) hypertension; E03.9 Hypothyroidism, unspecified; Z79.82 Long term (current) use of aspirin; Z79.899 Other long term (current) drug therapy; Z79.02 Long term (current) use of antithrombotics/antiplatelets; Z79.890 Hormone replacement therapy; Z79.84 Long term (current) use of oral hypoglycemic drugs; Z88.2 Allergy status to sulfonamides; E78.5 Hyperlipidemia, unspecified; I25.2 Old myocardial infarction; Z90.49 Acquired absence of other specified parts of digestive tract; Z95.5 Presence of coronary angioplasty implant and graft; I25.82 Chronic total occlusion of coronary artery; I87.8 Other specified disorders of veins
CPT/HCPCS: 96366 ×2; 96376; 96365; 99291; 36415; 93005; 93306; 93459; 85379; 80061; 80053; 80048 ×2; 82550; 82553; 83735; 84484; 85025 ×3; 85610; 85730 ×2; 81003; 71020; 71275; G0378 ×3; C1894; C1769 ×2; C1760; J2001; J2250; J1170; J1200; J1644 ×3; Q9967 ×2

== ENCOUNTER 2018-03-28 06:25 | Observation (INO) | payer MEDICARE, BC ==
[2018-03-28] MEDS ORDERED: SODIUM CHLORIDE 0.9% 500 ML IV STA (07:16)
[2018-03-28] MEDS ORDERED: SODIUM CHLORIDE 0.9% 1,000 ML IV STA (07:16)
[2018-03-28 07:19] LABS: Basophils % (A) 0 %; Eosinophils % (A) 0 %; HCT 39.7 % (34.0-46.0); HGB 12.9 gm/dL (11.4-16.0); Lymphocytes % (A) 18 %; MCH 28.5 pg (25.0-35.0); MCHC 32.4 g/dL (31.0-37.0); Mean Platelet Volume 6.8; Monocytes # (A) 0.2 k/uL (0-1.0); Monocytes % (A) 3 %; Neutrophils # (A) 4.3 k/uL (1.3-7.7); Neutrophils % (A) 78 %; Platelet Count 253 k/uL (150-450); RBC 4.51 m/uL (3.80-5.40); WBC 5.5 k/uL (3.8-10.6)
--- NOTE | 2018-03-28 07:21 | ED ---
Arrhythmia/Palpitations HPI - General Chief Complaint: Arrhythmia/Palpitations Stated Complaint: Irreg heartbeat Time Seen by Provider: 03/28/18 07:00 Source: patient, family, RN notes reviewed Mode of arrival: ambulatory Limitations: no limitations - History of Present Illness Initial Comments: This is a 82-year-old female who presents with complaints of skipped heartbeats. She states her intermittent at times more than others the seem to be more prominent when she is at rest and relax. She states is significant increase in she was placed on medication yesterday by her doctor. She was suffering with what was diagnosed as bronchitis last week or so has somewhat of a cough she was started on a Medrol Dosepak as well as Zithromax. She denies any chest pain shortness of breath fevers chills nausea vomiting sweats no lightheadedness or dizziness. No other modifying factors at this time. The patient does states she does have a slight cough no phlegm production MD Complaint: "skipped beats" - Related Data Home Medications Medication Instructions Recorded Confirmed Aspirin [Adult Low Dose Aspirin EC] 81 mg PO DAILY 03/15/17 03/28/18 Atenolol 25 mg PO BID 03/15/17 03/28/18 Atorvastatin Calcium [Lipitor] 20 mg PO HS 03/15/17 03/28/18 Clopidogrel Bisulfate [Plavix] 75 mg PO HS 03/15/17 03/28/18 Levothyroxine Sodium [Synthroid] 100 mcg PO DAILY 03/15/17 03/28/18 Losartan Potassium [Cozaar] 25 mg PO DAILY 03/15/17 03/28/18 Multivit-Min/Iron/Folic/Lutein 1 tab PO DAILY 03/15/17 03/28/18 [Centrum Silver Women Tablet] Pioglitazone [Actos] 15 mg PO Q48H 03/15/17 03/28/18 Azithromycin [Zithromax Z-pack] See Taper PO DAILY 03/28/18 03/28/18 Calcium Citrate/Vitamin D3 1 tab PO AC-SUPPER 03/28/18 03/28/18 [Calcitrate + Vit D Caplet] Cholecalciferol [Vitamin D3] 1,000 unit PO DAILY 03/28/18 03/28/18 methylPREDNISolone Dose Pack See Taper PO DIRECTED 05/23/18 05/23/18 [Medrol Dose Pack] Previous Rx's Medication Instructions Recorded Nitroglycerin Sl Tabs [Nitrostat] 0.4 mg SUBLINGUAL Q5M PRN #100 tab 03/16/17 Allergies Allergy/AdvReac Type Severity Reaction Status Date / Time Sulfa (Sulfonamide Allergy Rash/Hives Verified 03/28/18 07:27 Antibiotics) Review of Systems ROS Statement: Those systems with pertinent positive or pertinent negative responses have been documented in the HPI. ROS Other: All systems not noted in ROS Statement are negative. Past Medical History Past Medical History: Coronary Artery Disease (CAD), Chest Pain / Angina, Diabetes Mellitus, Hyperlipidemia, Hypertension, Thyroid Disorder, Vascular Disorder Additional Past Medical History / Comment(s): vertigo,"arrythmia-takes med to make heart beat stronger/slower", hiatal hernia, vison poor rt eye told" i have a crater" History of Any Multi-Drug Resistant Organisms: None Reported Past Surgical History: Cholecystectomy, Coronary Bypass/CABG, Hernia Repair, Hysterectomy Additional Past Surgical History / Comment(s): colonoscopy/polypectomy(benign), triple vessel cabg, sx for hiatal hernia , not sure if they took appendix w/ hysterectomy, lt cataract removed Past Anesthesia/Blood Transfusion Reactions: Motion Sickness Additional Past Anesthesia/Blood Transfusion Reaction / Comment(s): vertigo Past Psychological History: No Psychological Hx Reported Smoking Status: Never smoker Past Alcohol Use History: None Reported Past Drug Use History: None Reported - Past Family History Mother Family Medical History: CVA/TIA Father Additional Family Medical History / Comment(s): cerebral bleed General Exam - General Exam Comments Initial Comments: This is a well-developed well-nourished awake alert oriented 3 female Limitations: no limitations General appearance: alert, lethargic Head exam: Present: atraumatic, normocephalic, normal inspection Eye exam: Present: normal appearance, PERRL, EOMI. Absent: scleral icterus, conjunctival injection, periorbital swelling ENT exam: Present: mucous membranes dry Neck exam: Present: normal inspection, full ROM. Absent: tenderness, meningismus, lymphadenopathy Respiratory exam: Present: normal lung sounds bilaterally. Absent: respiratory distress, wheezes, rales, rhonchi, stridor Cardiovascular Exam: Present: regular rate, normal rhythm, normal heart sounds. Absent: systolic murmur, diastolic murmur, rubs, gallop, clicks GI/Abdominal exam: Present: soft, normal bowel sounds. Absent: distended, tenderness, guarding, rebound, rigid Extremities exam: Present: normal inspection, full ROM, normal capillary refill. Absent: tenderness, pedal edema, joint swelling, calf tenderness Back exam: Present: normal inspection Neurological exam: Present: alert, oriented X3, CN II-XII intact Psychiatric exam: Present: normal affect, normal mood Skin exam: Present: warm, dry, intact, normal color. Absent: rash Course Vital Signs 03/28/18 03/28/18 03/28/18 06:28 07:32 09:26 Temperature 97.1 F L Pulse Rate 57 L 57 L 60 Respiratory 18 18 18 Rate Blood Pressure 166/73 151/67 162/69 O2 Sat by Pulse 95 98 95 Oximetry 03/28/18 10:10 Temperature Pulse Rate 55 L Respiratory 18 Rate Blood Pressure 148/67 O2 Sat by Pulse 95 Oximetry - Reevaluation(s) Reevaluation #1: 03/28/18 12:39 The patient was noted on evaluation have unifocal PVCs. Closely resembling R-on -T phenomenon EKG Findings - EKG Results: EKG: interpreted by ERMD, sinus rhythm (EKG shows sinus bradycardia rate of 56 OR interval 156 QRS duration 82 T-System QTC of 460/451 possible left atrial enlargement nonspecific anterior changes this is compared to an EKG dated ) Medical Decision Making - Medical Decision Making I did discuss findings with the patient her and Dr. Ellington. PVCs appear to be no there variable patient will be admitted with cardiology consultation. I did discuss case also with Dr. Corrales - Lab Data Result diagrams: 03/28/18 06:55 03/28/18 06:55 Lab Results 03/28/18 03/28/18 03/28/18 Range/Units 06:55 06:55 06:55 WBC 5.5 (3.8-10.6) k/uL RBC 4.51 (3.80-5.40) m/uL Hgb 12.9 (11.4-16.0) gm/dL Hct 39.7 (34.0-46.0) % MCV 88.0 (80.0-100.0) fL MCH 28.5 (25.0-35.0) pg MCHC 32.4 (31.0-37.0) g/dL RDW 14.0 (11.5-15.5) % Plt Count 253 (150-450) k/uL Neutrophils % 78 % Lymphocytes % 18 % Monocytes % 3 % Eosinophils % 0 % Basophils % 0 % Neutrophils # 4.3 (1.3-7.7) k/uL Lymphocytes # 1.0 (1.0-4.8) k/uL Monocytes # 0.2 (0-1.0) k/uL Eosinophils # 0.0 (0-0.7) k/uL Basophils # 0.0 (0-0.2) k/uL PT (9.0-12.0) sec INR (<1.2) APTT (22.0-30.0) sec D-Dimer (<0.60) mg/L FEU Sodium 141 (137-145) mmol/L Potassium 5.2 H (3.5-5.1) mmol/L Chloride 103 (98-107) mmol/L Carbon Dioxide 26 (22-30) mmol/L Anion Gap 12 mmol/L BUN 31 H (7-17) mg/dL Creatinine 0.81 (0.52-1.04) mg/dL Est GFR (CKD-EPI)AfAm 78 (>60 ml/min/1.73 sqM) Est GFR (CKD-EPI)NonAf 68 (>60 ml/min/1.73 sqM) Glucose 140 H (74-99) mg/dL Calcium 10.0 (8.4-10.2) mg/dL Magnesium 1.8 (1.6-2.3) mg/dL Total Bilirubin 0.3 (0.2-1.3) mg/dL AST 31 (14-36) U/L ALT 35 (9-52) U/L Alkaline Phosphatase 72 (38-126) U/L Total Creatine Kinase 28 L (30-135) U/L CK-MB (CK-2) 0.3 (0.0-2.4) ng/mL CK-MB (CK-2) Rel Index 1.1 Troponin I <0.012 (0.000-0.034) ng/mL Total Protein 6.7 (6.3-8.2) g/dL Albumin 3.8 (3.5-5.0) g/dL 03/28/18 03/28/18 Range/Units 06:55 06:55 WBC (3.8-10.6) k/uL RBC (3.80-5.40) m/uL Hgb (11.4-16.0) gm/dL Hct (34.0-46.0) % MCV (80.0-100.0) fL MCH (25.0-35.0) pg MCHC (31.0-37.0) g/dL RDW (11.5-15.5) % Plt Count (150-450) k/uL Neutrophils % % Lymphocytes % % Monocytes % % Eosinophils % % Basophils % % Neutrophils # (1.3-7.7) k/uL Lymphocytes # (1.0-4.8) k/uL Monocytes # (0-1.0) k/uL Eosinophils # (0-0.7) k/uL Basophils # (0-0.2) k/uL PT 9.6 (9.0-12.0) sec INR 1.0 (<1.2) APTT 21.4 L (22.0-30.0) sec D-Dimer 2.84 H (<0.60) mg/L FEU Sodium (137-145) mmol/L Potassium (3.5-5.1) mmol/L Chloride (98-107) mmol/L Carbon Dioxide (22-30) mmol/L Anion Gap mmol/L BUN (7-17) mg/dL Creatinine (0.52-1.04) mg/dL Est GFR (CKD-EPI)AfAm (>60 ml/min/1.73 sqM) Est GFR (CKD-EPI)NonAf (>60 ml/min/1.73 sqM) Glucose (74-99) mg/dL Calcium (8.4-10.2) mg/dL Magnesium (1.6-2.3) mg/dL Total Bilirubin (0.2-1.3) mg/dL AST (14-36) U/L ALT (9-52) U/L Alkaline Phosphatase (38-126) U/L Total Creatine Kinase (30-135) U/L CK-MB (CK-2) (0.0-2.4) ng/mL CK-MB (CK-2) Rel Index Troponin I (0.000-0.034) ng/mL Total Protein (6.3-8.2) g/dL Albumin (3.5-5.0) g/dL - Radiology Data Radiology results: report reviewed (I did review the imaging and report no acute findings.), image reviewed Disposition Clinical Impression: Heart palpitations, Premature ventricular contractions (PVCs) (VPCs) Disposition: ADMITTED IP TO THIS [facility] Condition: Stable Referrals: Philipp Coronel MD [Primary Care Provider] - 1-2 days
[2018-03-28 07:28] LABS: Albumin 3.8 g/dL (3.5-5.0); Magnesium 1.8 mg/dL (1.6-2.3); Potassium 5.2 mmol/L (3.5-5.1); Total Bilirubin 0.3 mg/dL (0.2-1.3); Total Protein 6.7 g/dL (6.3-8.2)
[2018-03-28 07:41] LABS: Prothrombin Time 9.6 sec (9.0-12.0)
--- NOTE | 2018-03-28 07:41 | XR ---
EXAMINATION TYPE: XR chest 2V DATE OF EXAM: 03/28/2018 COMPARISON: 03/15/2017 HISTORY: Shortness of breath TECHNIQUE: Frontal and lateral views of the chest are obtained. FINDINGS: Scattered senescent parenchymal changes noted. No evidence for infiltrate. No evidence for atelectasis. Heart size is stable. Mediastinal structures are stable and grossly unremarkable. No evidence for hilar prominence. Degenerative changes dorsal spine. IMPRESSION: 1. No evidence for acute pulmonary disease.
[2018-03-28 07:47] LABS: Creatine Kinase 28 U/L (30-135)
[2018-03-28 07:49] LABS: Partial Thromboplastin Time 21.4 sec (22.0-30.0)
[2018-03-28 07:59] LABS: Creatine Kinase MB 0.3 ng/mL (0.0-2.4); Troponin I <0.012 ng/mL (0.000-0.034)
[2018-03-28] MEDS ORDERED: RX INFO: IV CONTRAST WAS GIVEN 1 EACH MISC MISCELLANE PRN (10:25)
--- NOTE | 2018-03-28 11:13 | CT ---
CT CHEST FOR PULMONARY EMBOLISM. EXAMINATION TYPE: CT angio chest DATE OF EXAM: 03/28/2018 INDICATION: Patient complains of chest pain. CT DLP: 196.8 mGycm, Automated exposure control for dose reduction was used. CONTRAST: Patient injected with 100 mL of Isovue 370. COMPARISON: 03/16/2017 TECHNIQUE: CT of the chest is performed on a spiral scan at 2 mm thick sections. Study is performed with intravenous contrast timed for evaluation for pulmonary embolism. This will limit additional po rtions of the evaluation. 3-D MIP images reconstructed by the technologist are reviewed on the compu ter in the coronal and sagittal planes. FINDINGS: No persistent filling defects are evident to suggest an acute pulmonary embolism. No mediastinal or hilar adenopathy enlarged by CT criteria is evident. The ascending aorta diameter at the level of the main pulmonary artery is 4.2 cm. The main pulmonary artery diameter at the bifur cation is 2.9 cm. Lung windows are clear. Limited CT section through the upper abdomen are unremarkable. 2. Ascending thoracic aortic aneurysm of 4.2 cm AP dimension. This is stable when measured at the hipolito e level on the previous exam. IMPRESSIONS: 1. No acute pulmonary embolism.
[2018-03-28] MEDS ORDERED: PIOGLITAZONE 15 MG TAB PO SCH (12:30)
[2018-03-28] MEDS ORDERED: NALOXONE 0.4 MG/ML 1 ML VIAL IV PRN (12:41)
[2018-03-28 13:57] VITALS: BMI 30.8
--- NOTE | 2018-03-28 14:03 | P.HPIM ---
History of Present Illness H&P Date: 03/28/18 Chief Complaint: Skipped heartbeats The patient is a 82-year-old female a past medical history of type 2 diabetes, coronary artery disease with history of CABG, essential hypertension, and dyslipidemia who presents to the ER with chief complaints of skipped beats increasing in frequency over the last 2 weeks. Apparently the patient is followed by Dr. Dai who is her primary ferruler, she reports that she has recently made some changes notably decreasing her bedtime Tenormin dose to half , the patient also complains of a recent bout of nonproductive cough that lasted a week and that is now resolved. She reports visiting her primary care physician Dr. Coronel yesterday and she was subsequently started on azithromycin and a Medrol Dosepak.the patient denies any shortness of breath, denies any lightheadedness, or fatigue, she denies any chest pain Or dyspnea on exertion. She reports to being on Tenormin for the last several decades. She denies any subjective fevers chills or night sweats. In the ER the patient was noted to be in sinus bradycardia with some possible PVCs on telemetry strip. Chest x-ray was clear, CTA of the chest was negative for PE. She had mildly elevated serum potassium at 5.2. Cardiac markers are negative and she was started on gentle hydration Review of Systems All other 12 point review of systems negative except per HPI Past Medical History Past Medical History: Coronary Artery Disease (CAD), Chest Pain / Angina, Diabetes Mellitus, Hyperlipidemia, Hypertension, Thyroid Disorder, Vascular Disorder Additional Past Medical History / Comment(s): vertigo,"arrythmia-takes med to make heart beat stronger/slower", hiatal hernia, vison poor rt eye told" i have a crater" History of Any Multi-Drug Resistant Organisms: None Reported Past Surgical History: Cholecystectomy, Coronary Bypass/CABG, Hernia Repair, Hysterectomy Additional Past Surgical History / Comment(s): colonoscopy/polypectomy(benign), triple vessel cabg, sx for hiatal hernia , not sure if they took appendix w/ hysterectomy, lt cataract removed Past Anesthesia/Blood Transfusion Reactions: Motion Sickness Additional Past Anesthesia/Blood Transfusion Reaction / Comment(s): vertigo Past Psychological History: No Psychological Hx Reported Smoking Status: Never smoker Past Alcohol Use History: None Reported Past Drug Use History: None Reported - Past Family History Mother Family Medical History: CVA/TIA Father Additional Family Medical History / Comment(s): cerebral bleed Medications and Allergies Home Medications Medication Instructions Recorded Confirmed Type Aspirin [Adult Low Dose Aspirin EC] 81 mg PO DAILY 03/15/17 03/28/18 History Atenolol 25 mg PO BID 03/15/17 03/28/18 History Atorvastatin Calcium [Lipitor] 20 mg PO HS 03/15/17 03/28/18 History Clopidogrel Bisulfate [Plavix] 75 mg PO HS 03/15/17 03/28/18 History Levothyroxine Sodium [Synthroid] 100 mcg PO DAILY 03/15/17 03/28/18 History Losartan Potassium [Cozaar] 25 mg PO DAILY 03/15/17 03/28/18 History Multivit-Min/Iron/Folic/Lutein 1 tab PO DAILY 03/15/17 03/28/18 History [Centrum Silver Women Tablet] Pioglitazone [Actos] 15 mg PO Q48H 03/15/17 03/28/18 History Nitroglycerin Sl Tabs [Nitrostat] 0.4 mg SUBLINGUAL Q5M PRN #100 tab 03/16/17 Rx Azithromycin [Zithromax Z-pack] See Taper PO DAILY 03/28/18 03/28/18 History Calcium Citrate/Vitamin D3 1 tab PO AC-SUPPER 03/28/18 03/28/18 History [Calcitrate + Vit D Caplet] Cholecalciferol [Vitamin D3] 1,000 unit PO DAILY 03/28/18 03/28/18 History methylPREDNISolone Dose Pack See Taper PO DIRECTED 03/28/18 03/28/18 History [Medrol Dose Pack] Allergies Allergy/AdvReac Type Severity Reaction Status Date / Time Sulfa (Sulfonamide Allergy Rash/Hives Verified 03/28/18 07:27 Antibiotics) Physical Exam Vitals: Vital Signs Temp Pulse Resp BP Pulse Ox 03/28/18 13:09 97.8 F 80 18 141/80 98 03/28/18 10:10 55 L 18 148/67 95 03/28/18 09:26 60 18 162/69 95 03/28/18 07:32 57 L 18 151/67 98 03/28/18 06:28 97.1 F L 57 L 18 166/73 95 Intake and Output 03/27/18 03/28/18 03/28/18 22:59 06:59 14:59 Other: Weight 79.379 kg Constitutional: No acute distress, conversant, pleasant Eyes: Anicteric sclerae, moist conjunctiva, no lid-lag, PERRLA ENMT: NC/AT,Oropharynx clear, no erythema, exudates Neck:Supple, FROM, no masses, or JVD, No carotid bruits; No thyromegaly Lungs: Clear to auscultation, Clear to percussion, Normal respiratory effort, no accessory muscle use Cardiovascular: Heart regular in rate and rhythm, No murmurs, gallops, or rubs no peripheral edema Abdominal: Soft Nontender, nom distended, no guarding, no rebound or rigidity, Normoactive bowel sounds No hepatomegaly, No splenomegaly, No palpable mass No abdominal wall hernia noted Skin: Normal temperature, tone, texture, turgor, No induration No subcutaneous nodules, No rash, lesions, No ulcers Extremities:No digital cyanosis No clubbing, Pedal pulses intact and symmetrical Radial pulses intact and symmetrical Normal gait and station, No calf tenderness Psychiatric: Alert and oriented to person, place and time, Appropriate affect Intact judgement Neuro: Muscles Strength 5/5 in all 4 extremities, Sensation to light touch grossly present throughout, Cranial nerves II-XII grossly intact. No focal sensory deficits Results CBC & Chem 7: 03/28/18 06:55 03/28/18 06:55 Labs: Abnormal Lab Results - Last 24 Hours (Table) 03/28/18 03/28/18 03/28/18 Range/Units 06:55 06:55 06:55 APTT 21.4 L (22.0-30.0) sec D-Dimer (<0.60) mg/L FEU Potassium 5.2 H (3.5-5.1) mmol/L BUN 31 H (7-17) mg/dL Glucose 140 H (74-99) mg/dL Total Creatine Kinase 28 L (30-135) U/L 03/28/18 Range/Units 06:55 APTT (22.0-30.0) sec D-Dimer 2.84 H (<0.60) mg/L FEU Potassium (3.5-5.1) mmol/L BUN (7-17) mg/dL Glucose (74-99) mg/dL Total Creatine Kinase (30-135) U/L Assessment and Plan (1) Heart palpitations Current Visit: Yes Status: Acute Code(s): R00.2 - PALPITATIONS SNOMED Code (s): 92158444 (2) Premature ventricular contractions (PVCs) (VPCs) Current Visit: Yes Status: Acute Code(s): I49.3 - VENTRICULAR PREMATURE DEPOLARIZATION SNOMED Code(s): 51467756 (3) Type 2 diabetes mellitus with hyperglycemia Current Visit: Yes Status: Acute Code(s): E11.65 - TYPE 2 DIABETES MELLITUS WITH HYPERGLYCEMIA SNOMED Code(s): 709497937659475 (4) Essential hypertension Current Visit: Yes Status: Acute Code(s): I10 - ESSENTIAL (PRIMARY) HYPERTENSION SNOMED Code(s): 71655230 Plan: The patient is placed on telemetry in observation status for palpitations with some PVCs noted on telemetry monitoring. Cardiology Dr. Dai has been consulted to see the patient. The patients cough has resolved and both her chest x-ray and CTA are negative for any infectious etiology. We'll discontinue her Medrol Dosepak and azithromycin. We'll restart her on her home medications in particular her Tenormin at 25 mg by mouth twice a day. We'll check a TSH and continue to monitor clinical course.
[2018-03-28] MEDS ORDERED: CALCIUM CARB-VIT D 500MG-200UN 1 EACH TAB PO SCH (17:30)
[2018-03-28] MEDS: ATENOLOL 25 MG TAB PO SCH (20:19)
[2018-03-28] MEDS ORDERED: CLOPIDOGREL 75 MG TAB PO SCH (21:00)
[2018-03-28] MEDS ORDERED: ATORVASTATIN 20 MG TAB PO SCH (21:00)
[2018-03-29] MEDS: LEVOTHYROXINE 100 MCG TAB PO SCH ×2 (05:48→12:09)
[2018-03-29 08:00] LABS: Calcium 9.4 mg/dL (8.4-10.2); Potassium 4.6 mmol/L (3.5-5.1)
[2018-03-29 08:48] VITALS: RESP 18
[2018-03-29] MEDS ORDERED: LOSARTAN 25 MG TAB PO SCH (09:00)
[2018-03-29] MEDS ORDERED: PIOGLITAZONE 15 MG TAB PO SCH (09:00)
[2018-03-29] MEDS ORDERED: ASPIRIN 81 MG PO SCH (09:00)
[2018-03-29] MEDS ORDERED: MULTIVITAMINS, THERA 1 EACH TAB PO SCH (09:00)
[2018-03-29] MEDS ORDERED: CHOLECALCIFEROL 1,000 UNIT TAB PO SCH (09:00)
[2018-03-29 12:00] VITALS: BP 136/72; PULSE 63; TEMP 97.7
--- NOTE | 2018-03-29 12:04 | P.CRDCN ---
History of Present Illness History of present illness: Mrs. Patel is a pleasant 82-year-old female past medical history significant for coronary artery disease status post bypass grafting, diabetes mellitus, hypertension, dyslipidemia, hypothyroidism and frequent complaints of palpitations. She follows with Dr. ELEAZAR Dai in the office. She recently underwent cardiac catheterization March 2017 which revealed an occluded SVG to second OM branch. SVG to OM1 is patent, HOBSON to LAD is patent and the RCA is dominant and disease free. At that time continued medical therapy with risk factor modification was recommended. We have been asked to see her in consultation for complaints of palpitations. She states she was diagnosed last week with bronchitis by her primary care physician. She was doing a follow-up visit and she complained of palpitations and generally not feeling well. She denies symptoms of chest pain, shortness of breath, dizziness, nausea, vomiting or diaphoresis. However her at the bedside states she has seemed more short of breath with exertion lately. Telemetry tracings reveal frequent PVCs. She did undergo a 24-hour Holter monitor in the office secondary to complaints of palpitations which revealed sinus mechanism with PACs but no evidence of an acute arrhythmia. EKG on arrival reveals sinus mechanism with nonspecific T-wave abnormalities. This is consistent with old EKGs. No acute abnormality. Telemetry tracings reveal PVCs. Chest x-ray is negative for acute cardiopulmonary process. CT angios of the chest performed is negative for pulmonary embolism with a descending aortic aneurysm 4.2 cm stable from previous exam. Laboratory data reviewed, hemoglobin 12.9, platelets 253, d-dimer 2.84, sodium 143, potassium on admission 5. 2 repeat this morning 4.6, magnesium 1.8, creatinine 0.75, TSH 0.663, cardiac enzymes negative 3. Current cardiac medications include aspirin 81 mg daily, atenolol 25 mg twice a day, atorvastatin 20 mg daily, Plavix 75 mg daily, losartan 25 mg daily. Plavix as prescribed per neurology secondary to TIA. She also takes Actos, multivitamin, levothyroxine, vitamin D and she is currently on a Z-Giovani and Medrol Dosepak per primary care physician secondary to bronchitis. Most recent echocardiogram performed March 2017 reveals preserved left ventricular systolic function with an ejection fraction 60-65%, mildly thickened aortic valve with no stenosis, mildly thickened mitral valve. Review of Systems At the time of my exam: CONSTITUTIONAL: Denies fever. Denies chills. EYES: Denies blurred vision. Denies vision changes. Denies eye pain. EARS, NOSE, MOUTH & THROAT: Denies headache. Denies sore throat. Denies ear pain. CARDIOVASCULAR: Denies chest pain. Denies shortness of breath. Denies orthopnea. Denies PND. Denies palpitations. RESPIRATORY: Denies cough. GASTROINTESTINAL: Denies abdominal pain. Denies diarrhea. Denies constipation. Denies nausea. Denies vomiting. MUSCULOSKELETAL: Denies myalgias. INTEGUMENTARY: Denies pruitis. Denies rash. NEUROLOGIC: Denies numbness. Denies tingling. Denies weakness. PSYCHIATRIC: Denies anxiety. Denies depression. ENDOCRINE: Denies fatigue. Denies weight change. Denies polydipsia. Denies polyurina. GENITOURINARY: Denies burning, hematuria or urgency with micturation. HEMATOLOGIC: Denies history of anemia. Denies bleeding. Past Medical History Past Medical History: Coronary Artery Disease (CAD), Chest Pain / Angina, Diabetes Mellitus, Hyperlipidemia, Hypertension, Thyroid Disorder, Vascular Disorder Additional Past Medical History / Comment(s): vertigo,"arrythmia-takes med to make heart beat stronger/slower", hiatal hernia, vison poor rt eye told" i have a crater" History of Any Multi-Drug Resistant Organisms: None Reported Past Surgical History: Cholecystectomy, Coronary Bypass/CABG, Hernia Repair, Hysterectomy Additional Past Surgical History / Comment(s): colonoscopy/polypectomy(benign), triple vessel cabg, sx for hiatal hernia , not sure if they took appendix w/ hysterectomy, lt cataract removed Past Anesthesia/Blood Transfusion Reactions: Motion Sickness Additional Past Anesthesia/Blood Transfusion Reaction / Comment(s): vertigo Past Psychological History: No Psychological Hx Reported Smoking Status: Never smoker Past Alcohol Use History: None Reported Past Drug Use History: None Reported - Past Family History Mother Family Medical History: CVA/TIA Father Additional Family Medical History / Comment(s): cerebral bleed Medications and Allergies Home Medications Medication Instructions Recorded Confirmed Type Aspirin [Adult Low Dose Aspirin EC] 81 mg PO DAILY 03/15/17 03/28/18 History Atenolol 25 mg PO BID 03/15/17 03/28/18 History Atorvastatin Calcium [Lipitor] 20 mg PO HS 03/15/17 03/28/18 History Clopidogrel Bisulfate [Plavix] 75 mg PO HS 03/15/17 03/28/18 History Levothyroxine Sodium [Synthroid] 100 mcg PO DAILY 03/15/17 03/28/18 History Losartan Potassium [Cozaar] 25 mg PO DAILY 03/15/17 03/28/18 History Multivit-Min/Iron/Folic/Lutein 1 tab PO DAILY 03/15/17 03/28/18 History [Centrum Silver Women Tablet] Pioglitazone [Actos] 15 mg PO Q48H 03/15/17 03/28/18 History Nitroglycerin Sl Tabs [Nitrostat] 0.4 mg SUBLINGUAL Q5M PRN #100 tab 03/16/17 Rx Azithromycin [Zithromax Z-pack] See Taper PO DAILY 03/28/18 03/28/18 History Calcium Citrate/Vitamin D3 1 tab PO AC-SUPPER 03/28/18 03/28/18 History [Calcitrate + Vit D Caplet] Cholecalciferol [Vitamin D3] 1,000 unit PO DAILY 03/28/18 03/28/18 History methylPREDNISolone Dose Pack See Taper PO DIRECTED 03/28/18 03/28/18 History [Medrol Dose Pack] Allergies Allergy/AdvReac Type Severity Reaction Status Date / Time Sulfa (Sulfonamide Allergy Rash/Hives Verified 03/28/18 07:27 Antibiotics) Physical Exam Vitals: Vital Signs Temp Pulse Pulse Pulse Resp BP BP 03/29/18 07:55 97.8 F 54 L 18 144/70 03/29/18 04:00 97.7 F 61 16 129/61 03/29/18 00:00 98.0 F 66 16 123/58 03/28/18 23:39 71 16 03/28/18 20:00 98.4 F 77 16 150/75 03/28/18 16:00 97.7 F 62 16 108/50 03/28/18 15:39 74 18 03/28/18 13:30 98.3 F 85 18 140/71 03/28/18 13:09 97.8 F 80 18 141/80 Pulse Ox 03/29/18 07:55 95 03/29/18 04:00 97 03/29/18 00:00 93 L 03/28/18 23:39 03/28/18 20:00 96 03/28/18 16:00 96 03/28/18 15:39 03/28/18 13:30 95 03/28/18 13:09 98 Intake and Output 03/28/18 03/29/18 03/29/18 22:59 06:59 14:59 Intake Total 90 Output Total 300 Balance -210 Intake: Oral 90 Output: Urine 300 Other: Voiding Method Toilet Toilet # Voids 3 Weight 79 kg Blood pressure 144/70 heart rate 54 afebrile maintaining oxygen saturation on room air GENERAL: This is a 82-year-old occasion female in no apparent distress at the time of my examination. Obese. HEENT: Head is atraumatic, normocephalic. Pupils are equal, round. Sclerae anicteric. Conjunctivae are clear. Mucous membranes of the mouth are moist. Neck is supple. There is no jugular venous distention. No carotid bruit is heard. LUNGS: Clear to auscultation no wheezes, rales or rhonchi. No chest wall tenderness is noted on palpation or with deep breathing. HEART: Regular rate and rhythm without murmurs, rubs or gallops. S1 and S2 heard. ABDOMEN: Soft, nontender. Bowel sounds are heard. No organomegaly noted. EXTREMITIES: No evidence of peripheral edema and no calf tenderness noted. VASCULAR: Radial and dorsalis pedis pulses palpated, no evidence of clubbing. NEUROLOGIC: Patient is awake, alert and oriented x3. Results 03/28/18 06:55 03/29/18 07:33 Cardiac Enzymes 03/28/18 03/29/18 Range/Units 18:24 00:33 Troponin I <0.012 <0.012 (0.000-0.034) ng/mL Comprehensive Metabolic Panel 03/29/18 Range/Units 07:33 Sodium 143 (137-145) mmol/L Potassium 4.6 (3.5-5.1) mmol/L Chloride 108 H (98-107) mmol/L Carbon Dioxide 25 (22-30) mmol/L BUN 26 H (7-17) mg/dL Creatinine 0.75 (0.52-1.04) mg/dL Glucose 92 (74-99) mg/dL Calcium 9.4 (8.4-10.2) mg/dL Current Medications Generic Name Dose Route Start Last Admin Trade Name Freq PRN Reason Stop Dose Admin Aspirin 81 mg 03/29/18 09:00 Aspirin PO DAILY [facility] Atenolol 25 mg 03/28/18 21:00 03/28/18 20:19 Tenormin PO 25 mg BID LOW Administration Atorvastatin Calcium 20 mg 03/28/18 21:00 03/28/18 20:19 Lipitor PO 20 mg HS LOW Administration Calcium Carbonate 1 each 03/28/18 17:30 03/28/18 17:46 Oscal 500+D PO 1 each AC-SUPPER LOW Administration Cholecalciferol 1,000 unit 03/29/18 09:00 Vitamin D3 PO DAILY [facility] Clopidogrel Bisulfate 75 mg 03/28/18 21:00 03/28/18 20:19 Plavix PO 75 mg HS LOW Administration Levothyroxine Sodium 100 mcg 03/29/18 06:30 03/29/18 05:48 Synthroid PO Not Given DAILY@0630 [facility] Losartan Potassium 25 mg 03/29/18 09:00 Cozaar PO DAILY [facility] Miscellaneous Information 1 each 03/28/18 10:25 03/28/18 10:34 Rx Info: Iv Contrast Was Given MISCELLANE 03/30/18 10:25 1 each DAILY PRN Administration Per Protocol Multivitamins 1 each 03/29/18 09:00 Theragran PO DAILY [facility] Naloxone HCl 0.2 mg 03/28/18 12:41 Narcan IV Q2M PRN Opioid Reversal Pioglitazone HCl 15 mg 03/29/18 09:00 Actos PO Q48H LOW Intake and Output 03/28/18 03/29/18 03/29/18 22:59 06:59 14:59 Intake Total 90 Output Total 300 Balance -210 Intake: Oral 90 Output: Urine 300 Other: Voiding Method Toilet Toilet # Voids 3 Weight 79 kg 03/28/18 06:55 03/29/18 07:33 Assessment and Plan Assessment: ASSESSMENT 1. Palpitations 2. History of coronary artery disease s/p bypass grafting with occluded SVG-OM 3. Hypertension 4. Dyslipidemia 5. Hypothyroid 6. Diabetes mellitus PLAN Obtain 2D echocardiogram and doppler study to assess cardiac structure and function. TSH checked and normal. Will consider event monitor to further evaluate palpitations with evidence only of PVCs on telemetry. Follow-up with Dr. ELEAZAR Dai in 4-6 weeks. Thank you kindly for this consultation. Nurse Practitioner note has been reviewed, I agree with a documented findings and plan of care. Patient was seen and examined.
[2018-03-29] MEDS: ATENOLOL 25 MG TAB PO SCH (12:09)
--- NOTE | 2018-03-29 14:25 | ECHOF ---
Referral Reason:palpitations MEASUREMENTS -------- HEIGHT: 160.0 cm WEIGHT: 78.9 kg BP: 144/70 RVIDd: 2.8 cm (< 3.3) IVSd: 1.1 cm (0.6 - 1.1) LVIDd: 4.2 cm (3.9 - 5.3) LVPWd: 1.1 cm (0.6 - 1.1) IVSs: 1.5 cm LVIDs: 2.7 cm LVPWs: 1.2 cm LA Diam: 3.3 cm (2.7 - 3.8) LAESV Index (A-L): 24.69 ml/m Ao Diam: 3.4 cm (2.0 - 3.7) AV Cusp: 1.9 cm (1.5 - 2.6) MV EXCURSION: 9.414 mm (> 18.000) MV EF SLOPE: 57 mm/s (70 - 150) EPSS: 0.7 cm MV E Vernon: 1.13 m/s MV DecT: 274 ms MV A Vernon: 1.14 m/s MV E/A Ratio: 1.00 RAP: 5.00 mmHg RVSP: 31.19 mmHg FINDINGS -------- Sinus rhythm. This was a technically good study. The left ventricular size is normal. There is borderline concentric left ventricular hypertrophy. Overall left ventricular systolic function is normal with, an EF between 60 - 65 %. The right ventricle is normal in size. Normal LA size by volume 22+/-6 ml/m2. The right atrium is normal in size. The aortic valve is trileaflet and appears structurally normal. The mitral valve is normal. Mild tricuspid regurgitation present. Right ventricular systolic pressure is normal at < 35 mmHg. Trace/mild (physiologic) pulmonic regurgitation. The aortic root size is normal. Normal inferior vena cava with normal inspiratory collapse consistent with estimated right atrial pre ssure of 5 mmHg. There is no pericardial effusion. CONCLUSIONS -------- 1. Sinus rhythm. 2. This was a technically good study. 3. The left ventricular size is normal. 4. There is borderline concentric left ventricular hypertrophy. 5. Overall left ventricular systolic function is normal with, an EF between 60 - 65 %. 6. The right ventricle is normal in size. 7. Normal LA size by volume 22+/-6 ml/m2. 8. The right atrium is normal in size. 9. The aortic valve is trileaflet and appears structurally normal. 10. The mitral valve is normal. 11. Mild tricuspid regurgitation present. 12. Right ventricular systolic pressure is normal at < 35 mmHg. 13. Trace/mild (physiologic) pulmonic regurgitation. 14. The aortic root size is normal. 15. Normal inferior vena cava with normal inspiratory collapse consistent with estimated right atrial pressure of 5 mmHg. 16. There is no pericardial effusion. ANIMAL CARE GIVER: Angelique Banerjee RDCS
--- NOTE | 2018-03-29 15:41 | P.DS ---
Providers Date of admission: 03/28/18 12:41 Attending physician: Luis Alfredo Corrales MD Consults: 03/28/18 12:43 Consult Physician Routine Consulting Provider: Megha Dai Consult Reason/Comments: Frequent PVCs new-onset Do you want consulting provider notified?: Yes Primary care physician: Philipp Coronel - Discharge Diagnosis(es) (1) Heart palpitations Current Visit: Yes Status: Acute (2) Premature ventricular contractions (PVCs) (VPCs) Current Visit: Yes Status: Acute (3) Type 2 diabetes mellitus with hyperglycemia Current Visit: Yes Status: Acute (4) Essential hypertension Current Visit: Yes Status: Acute (5) Hypothyroidism Current Visit: Yes Status: Acute (6) Dyslipidemia Current Visit: Yes Status: Acute Hospital Course: The patient is a 82-year-old female with a past medical history of coronary artery disease status post CABG, type 2 diabetes, essential hypertension, hyperlipidemia who presents with complaints of palpitations and her heart skipping a beat, she was placed on telemetry unit and her previous telemetry tracings that indicated some frequent PVCs. Apparently the patient had previously had a 24 hr Holter monitoring which revealed sinus mechanism with PACs with no evidence of arrhythmia. The patient had previously been initiated on treatment with a Z-Giovani and steroids for acute bronchitis, this was discontinued. Echocardiogram and carotid Dopplers were performed neither which showed any causative etiology of her palpitations. The patient was placed back on her maintenance dose of atenolol 25 mg by mouth twice a day with plans for an event monitoring and follow-up with cardiology Dr. Dai 05/21/18. She was subsequently discharged home in stable condition. This discharge process took approximately 30 minutes Physical exam Constitutional: No acute distress, conversant, pleasant Eyes: Anicteric sclerae, moist conjunctiva, no lid-lag, PERRLA ENMT: NC/AT,Oropharynx clear, no erythema, exudates Neck:Supple, FROM, no masses, or JVD, No carotid bruits; No thyromegaly Lungs: Clear to auscultation, Clear to percussion, Normal respiratory effort, no accessory muscle use Cardiovascular: Heart regular in rate and rhythm, No murmurs, gallops, or rubs no peripheral edema Abdominal: Soft Nontender, nom distended, no guarding, no rebound or rigidity, Normoactive bowel sounds No hepatomegaly, No splenomegaly, No palpable mass No abdominal wall hernia noted Skin: Normal temperature, tone, texture, turgor, No induration No subcutaneous nodules, No rash, lesions, No ulcers Extremities:No digital cyanosis No clubbing, Pedal pulses intact and symmetrical Radial pulses intact and symmetrical Normal gait and station, No calf tenderness Psychiatric: Alert and oriented to person, place and time, Appropriate affect Intact judgement Neuro: Muscles Strength 5/5 in all 4 extremities, Sensation to light touch grossly present throughout, Cranial nerves II-XII grossly intact. No focal sensory deficits Pertinent Studies: 2-D echocardiogram * showing a normal preserved ejection fraction with normal LV function Carotid Dopplers * showing no clinically significant carotid artery disease CTA of the chest * no acute pulmonary embolism Patient Condition at Discharge: Good Plan - Discharge Summary Discharge Rx Participant: No New Discharge Prescriptions: Continue Aspirin [Adult Low Dose Aspirin EC] 81 mg PO DAILY Pioglitazone [Actos] 15 mg PO Q48H Losartan Potassium [Cozaar] 25 mg PO DAILY Atorvastatin Calcium [Lipitor] 20 mg PO HS Levothyroxine Sodium [Synthroid] 100 mcg PO DAILY Clopidogrel Bisulfate [Plavix] 75 mg PO HS Atenolol 25 mg PO BID Multivit-Min/Iron/Folic/Lutein [Centrum Silver Women Tablet] 1 tab PO DAILY Nitroglycerin Sl Tabs [Nitrostat] 0.4 mg SUBLINGUAL Q5M PRN #100 tab PRN Reason: Chest Pain Cholecalciferol [Vitamin D3] 1,000 unit PO DAILY Calcium Citrate/Vitamin D3 [Calcitrate + Vit D Caplet] 1 tab PO AC-SUPPER Discontinued methylPREDNISolone Dose Pack [Medrol Dose Pack] See Taper PO DIRECTED Azithromycin [Zithromax Z-pack] See Taper PO DAILY Discharge Medication List Aspirin [Adult Low Dose Aspirin EC] 81 mg PO DAILY 03/15/17 [History] Atenolol 25 mg PO BID 03/15/17 [History] Atorvastatin Calcium [Lipitor] 20 mg PO HS 03/15/17 [History] Clopidogrel Bisulfate [Plavix] 75 mg PO HS 03/15/17 [History] Levothyroxine Sodium [Synthroid] 100 mcg PO DAILY 03/15/17 [History] Losartan Potassium [Cozaar] 25 mg PO DAILY 03/15/17 [History] Multivit-Min/Iron/Folic/Lutein [Centrum Silver Women Tablet] 1 tab PO DAILY 08/22 [History] Pioglitazone [Actos] 15 mg PO Q48H 03/15/17 [History] Nitroglycerin Sl Tabs [Nitrostat] 0.4 mg SUBLINGUAL Q5M PRN #100 tab 03/16/17 [ Rx] Calcium Citrate/Vitamin D3 [Calcitrate + Vit D Caplet] 1 tab PO AC-SUPPER [History] Cholecalciferol [Vitamin D3] 1,000 unit PO DAILY 03/28/18 [History] Follow up Appointment(s)/Referral(s): Megha Dai MD [STAFF PHYSICIAN] - 05/21/18 9:45 am Philipp Coronel MD [Primary Care Provider] - 1-2 days Patient Instructions/Handouts: Chest Pain (DC)
== END 2018-03-29 16:05 | disposition home or self-care (01) ==
LOC: EC 06:25 → 3OBS 12:41
PROVIDERS: ADMIT Family Medicine; ATTEND Family Medicine
DX: R00.2 Palpitations (principal); I49.3 Ventricular premature depolarization; E11.65 Type 2 diabetes mellitus with hyperglycemia; I10 Essential (primary) hypertension; E03.9 Hypothyroidism, unspecified; E78.5 Hyperlipidemia, unspecified; I25.10 Atherosclerotic heart disease of native coronary artery without angina pectoris; Z95.5 Presence of coronary angioplasty implant and graft; E87.5 Hyperkalemia; R42 Dizziness and giddiness; Z90.49 Acquired absence of other specified parts of digestive tract; Z82.3 Family history of stroke; Z79.82 Long term (current) use of aspirin; Z79.899 Other long term (current) drug therapy; Z79.02 Long term (current) use of antithrombotics/antiplatelets; Z79.890 Hormone replacement therapy; Z79.84 Long term (current) use of oral hypoglycemic drugs; Z87.09 Personal history of other diseases of the respiratory system; Z88.2 Allergy status to sulfonamides; I25.810 Atherosclerosis of coronary artery bypass graft(s) without angina pectoris
CPT/HCPCS: 99285; 96360 ×2; 96361 ×6; 36415; 93005; 93306; 93270; 93271; 85379; 80053; 80048; 84443; 82550; 82553; 83735; 84484 ×2; 85025; 85610; 85730; 71046; 71275; G0378 ×2; Q9967

== ENCOUNTER → 2018-06-15 | Outpatient (CLI) | payer MEDICARE, BC ==
--- NOTE | 2018-06-25 11:45 | MM ---
Reason for exam: screening (asymptomatic). Last mammogram was performed 2 years and 2 months ago. History: Patient is postmenopausal. Family history of breast cancer in maternal grandmother at age 50. Taking estrogen for 32 years beginning at age 50. Taking progesterone for 32 years beginning at age 50. Physical Findings: A clinical breast exam by your physician is recommended on an annual basis and results should be correlated with mammographic findings. MG 3D Screening Mammo W/Cad Bilateral CC and MLO view(s) were taken. XCCL view(s) were taken of the right breast. Prior study comparison: April 05, 2016, bilateral MG 3d screening mammo w/cad. April 03, 2015, bilateral MG screening mammo w CAD. The breast tissue is heterogeneously dense. This may lower the sensitivity of mammography. There is no discrete abnormality. No significant changes when compared with prior studies. ASSESSMENT: Negative, BI-RAD 1 RECOMMENDATION: Routine screening mammogram of both breasts in 1 year.
== END | disposition home or self-care (01) ==
LOC: RADMAMWWP 14:22
PROVIDERS: ATTEND Internal Medicine
DX: Z12.31 Encounter for screening mammogram for malignant neoplasm of breast (principal)
CPT/HCPCS: 77063; 77067

== ENCOUNTER → 2019-07-02 | Outpatient (CLI) | payer MEDICARE, BC ==
--- NOTE | 2019-07-03 08:09 | XR ---
EXAMINATION TYPE: XR wrist complete LT DATE OF EXAM: 07/02/2019 COMPARISON: NONE HISTORY: Pain TECHNIQUE: Four views submitted. FINDINGS: The osseous structures are intact. The joint spaces are preserved and there is no acute fracture or dislocation. Diffuse osteopenia. Narrowing of the radiocarpal joint. IMPRESSION: 1. No definite acute fracture or dislocation if symptoms persist, follow-up study in 7 to 10 days wo uld be suggested. 2. Arthropathy.
--- NOTE | 2019-07-04 09:26 | MM ---
Reason for exam: screening (asymptomatic). Last mammogram was performed 1 year and 1 month ago. History: Patient is postmenopausal. Family history of breast cancer in maternal grandmother at age 50. Taking estrogen for 32 years beginning at age 50. Taking progesterone for 32 years beginning at age 50. Physical Findings: A clinical breast exam by your physician is recommended on an annual basis and results should be correlated with mammographic findings. MG 3D Screening Mammo W/Cad Bilateral CC and MLO view(s) were taken. Prior study comparison: June 15, 2018, bilateral MG 3d screening mammo w/cad. April 05, 2016, bilateral MG 3d screening mammo w/cad. There are scattered fibroglandular densities. No significant changes when compared with prior studies. ASSESSMENT: Benign, BI-RAD 2 RECOMMENDATION: Routine screening mammogram of both breasts in 1 year.
== END | disposition home or self-care (01) ==
LOC: RADMAMWWP 15:51
PROVIDERS: ATTEND Internal Medicine
DX: Z12.31 Encounter for screening mammogram for malignant neoplasm of breast (principal); M19.032 Primary osteoarthritis, left wrist
CPT/HCPCS: 77063; 77067

== ENCOUNTER → 2020-04-01 | Outpatient (CLI) | payer MEDICARE, BC ==
[2020-04-01 11:39] LABS: HCT 37.6 % (34.0-46.0); HGB 12.1 gm/dL (11.4-16.0); Hypochromasia Slight; MCHC 32.1 g/dL (31.0-37.0); MCV 93.3 fL (80.0-100.0); Mean Platelet Volume 6.8; Platelet Count 292 k/uL (150-450); RBC 4.03 m/uL (3.80-5.40)
[2020-04-01 16:11] LABS: African American GFR (CKD) 67.6 (60.0-200.0); Anion Gap 4.7 mmol/L (4.00-12.00); Carbon Dioxide 28.3 mmol/L (21.6-31.8); Non-African American GFR(CKD) 58.3 (60.0-200.0); Potassium 4.7 mmol/L (3.5-5.5)
== END | disposition home or self-care (01) ==
LOC: LABWHC1 10:48
PROVIDERS: ATTEND Internal Medicine Interventional Cardiology
DX: Z01.818 Encounter for other preprocedural examination (principal); I25.10 Atherosclerotic heart disease of native coronary artery without angina pectoris
CPT/HCPCS: 80051; 82565; 84520; 85027; 36415; U0003

== ENCOUNTER 2020-04-02 10:45 | Day surgery (SDC) | payer MEDICARE, BC ==
[2020-03-31 16:04] VITALS: BMI 31.8
[~2020-04-02 10:45] MED LIST: ALPRAZolam 0.25 MG TAB PO PRN; ALPRAZolam 0.5 MG TAB PO PRN; ASPIRIN 325 MG TAB PO ONE; ATORVASTATIN 80 MG TAB PO ONE; NITROGLYCERIN SL TABS 0.4 MG TAB SUBLINGUAL PRN; SODIUM CHLORIDE 0.9% 1,000 ML in EMPTY BAG 1 BAG IV ONE
[2020-04-02 11:33] LABS: Glucose,Whole Blood 95 mg/dL (75-99)
[2020-04-02 11:36] VITALS: TEMP 98.2
[2020-04-02] MEDS ORDERED: MIDAZOLAM 2 MG/2 ML VIAL IV ONE (12:50)
[2020-04-02] MEDS ORDERED: LIDOCAINE 1% INJ 10MG/ML (20 ML MDV) SQ ONE (13:01)
[2020-04-02] MEDS ORDERED: IOPAMIDOL-370 100ML BTL INJ ONE (13:15)
[2020-04-02] MEDS ORDERED: NITROGLYCERIN SL TABS 0.4 MG TAB SUBLINGUAL ONE (13:15)
[2020-04-02] MEDS ORDERED: HYDROmorphone 1 MG/ML 1 ML SYRINGE IVP ONE (13:20)
[2020-04-02] MEDS ORDERED: SODIUM CHLORIDE 0.9% 1,000 ML IV SCH (13:45)
[2020-04-02 18:21] VITALS: PULSE 60; RESP 16
--- NOTE | 2020-04-02 18:28 | CC ---
CARDIAC CATHETERIZATION REPORT DATE OF SERVICE: 04/02/2020 PROCEDURE: Left heart catheterization and coronary angiography. PERFORMED BY: Dr. Katie Dai. Moderate conscious sedation time was 21 minutes. Patient was administered Versed. Oxygen saturation, hemodynamics and EKG were monitored closely. CLINICAL INFORMATION: Mrs. Eloina Patel is an 84-year-old elderly lady with a history of CAD, hypertension, diabetes, hyperlipidemia, previous aortocoronary bypass surgery in 2012 with an ostial left main and also significant proximal LAD lesion. She underwent bypass surgery in 2012 with a HOBSON to LAD and 2 separate vein grafts to the 2 obtuse marginal branches. Over the years, the second obtuse marginal was occluded. Cardiac cath in 2017 revealed that the second OM graft was occluded, but the first OM graft and HOBSON were patent. RCA was disease-free and she was advised medical therapy. Because of ongoing persistent recurrent chest pains responsive to nitroglycerin, I recommended coronary angiography after due discussion regarding risks, benefits and options. PROCEDURE NOTE: Under local anesthesia and strict aseptic precautions, a 6-English introducer was placed in the right femoral artery. Using a standard left Negin catheter I performed selective coronary angiography of the left system. Using a Perry catheter, I performed selective coronary angiography of the RCA, the vein graft to the first obtuse marginal. The second obtuse marginal graft was occluded. I also used the same catheter for the HOBSON injection. A pigtail catheter was used to check LV pressure, but LV gram was not performed. The sheath was taken out and a Perclose device used to secure hemostasis. She was sent to the room in stable condition. CARDIAC CATHETERIZATION FINDINGS: The left ventricular end-diastolic pressure was about 12 to 14 mmHg without any gradient across the aortic valve. CORONARY ANGIOGRAPHY FINDINGS: LEFT MAIN CORONARY ARTERY: Short patent vessel with ostial 30% lesion. The vessel bifurcates into LAD and circumflex. LEFT ANTERIOR DESCENDING CORONARY ARTERY: Occluded in the mid portion after 2 tandem lesions which are 80% to 90%. LEFT POSTERIOR CIRCUMFLEX CORONARY ARTERY: Fair-caliber vessel. The first obtuse marginal has about a 70% ostial lesion as it comes off from the main circumflex. This vessel is grafted and the graft is filling backwards. The second obtuse marginal has no significant disease. There is a stump noted. The graft appears to be occluded. RIGHT CORONARY ARTERY: Dominant vessel. No significant disease. Supplies sizable amount of myocardium. Distally bifurcates into a large PDA and PLV. No significant disease in the dominant RCA. LEFT INTERNAL MAMMARY ARTERY GRAFT TO LEFT ANTERIOR DESCENDING: This graft is widely patent in its origin, course and insertion site. Opacified LAD has minor irregularities; no significant disease. SAPHENOUS VEIN GRAFT TO THE FIRST OBTUSE MARGINAL BRANCH OF CIRCUMFLEX: The graft is widely patent at its origin, course, insertion site, and opacified obtuse marginal has minor irregularities. SECOND OBTUSE MARGINAL GRAFT: This graft was noted to be occluded. LEFT VENTRICULOGRAM: This was not performed. FINAL IMPRESSION: This patient has a right-dominant system. No significant disease in the RCA. LAD is occluded in the mid portion. Ostial left main has about 30% to 35%. The first obtuse marginal has a 70% lesion. Second obtuse marginal has no significant disease. The vein graft to the first obtuse marginal is patent. HOBSON to LAD is patent. Second obtuse marginal graft is occluded. Filling pressures are slightly elevated and no gradient across the aortic valve. RECOMMENDATIONS: Findings were discussed with the patient and her . She does not have any significant obstructive CAD that requires intervention. We will continue medical therapy and I will try Prilosec 20 mg daily for 2 months and also will talk to the primary care physician and see if she will benefit from a mini pulmonary evaluation in view of her shortness of breath. I discussed my thoughts in detail with the patient and her . MMODL / IJN: [id number] /
[2020-04-02 18:34] VITALS: BP 117/56
== END 2020-04-02 18:41 | disposition home or self-care (01) ==
LOC: CATHCVL 10:45
PROVIDERS: ATTEND Internal Medicine Interventional Cardiology
DX: I25.110 Atherosclerotic heart disease of native coronary artery with unstable angina pectoris (principal); I25.710 Atherosclerosis of autologous vein coronary artery bypass graft(s) with unstable angina pectoris; I10 Essential (primary) hypertension; I25.2 Old myocardial infarction; E78.5 Hyperlipidemia, unspecified; E11.9 Type 2 diabetes mellitus without complications; E78.00 Pure hypercholesterolemia, unspecified; Z79.84 Long term (current) use of oral hypoglycemic drugs; Z79.02 Long term (current) use of antithrombotics/antiplatelets; Z79.82 Long term (current) use of aspirin; Z79.890 Hormone replacement therapy; Z79.899 Other long term (current) drug therapy; Z88.2 Allergy status to sulfonamides
CPT/HCPCS: 93459; C1769 ×3; C1894; C1760; J2250; J2001; J1170; Q9967

== ENCOUNTER → 2020-06-09 | Outpatient (CLI) | payer MEDICARE, BC ==
--- NOTE | 2020-06-09 15:59 | CT ---
EXAMINATION TYPE: CT chest wo con DATE OF EXAM: 06/09/2020 COMPARISON: 03/28/2018 HISTORY: high resolution, dyspnea on exertion CT DLP: 542.8 mGycm, Automated exposure control for dose reduction was used. CONTRAST: None TECHNIQUE: Axial images were obtained at 1 mm thick sections at 10 mm intervals. This will limit po rtions of the examination which may not be visualized within the [id number]. Images were obtained in the prone and supine views. FINDINGS: Portion of the thyroid visualized is normal. No suspicious lung nodules or focal infiltrat es are present. No enlarged mediastinal or hilar adenopathy is evident. The ascending aorta diameter at the level o f the main pulmonary artery is 4.1 cm. The main pulmonary artery diameter at the bifurcation is 2.7 cm. Mild coronary artery calcification is within the [id number]. Limited CT sections are obtained through the upper abdomen. Abdomen is essentially unremarkable. IMPRESSIONS: 1. No suspicious acute changes high-resolution CT chest. 2. Ascending thoracic aortic aneurysm, stable from comparison.
== END | disposition home or self-care (01) ==
LOC: RADCTMAIN 13:17
PROVIDERS: ATTEND Internal Medicine Critical Care Medicine
DX: I71.2 Thoracic aortic aneurysm, without rupture (principal); R06.09 Other forms of dyspnea
CPT/HCPCS: 71250

== ENCOUNTER → 2020-07-03 | Outpatient (CLI) | payer MEDICARE, BC ==
--- NOTE | 2020-07-07 07:22 | MM ---
Reason for exam: screening (asymptomatic). Last mammogram was performed 1 year ago. History: Patient is postmenopausal. Family history of breast cancer in maternal grandmother at age 50. Taking estrogen for 32 years beginning at age 50. Taking progesterone for 32 years beginning at age 50. Physical Findings: A clinical breast exam by your physician is recommended on an annual basis and results should be correlated with mammographic findings. MG 3D Screening Mammo W/Cad Bilateral CC and MLO view(s) were taken. Prior study comparison: July 02, 2019, bilateral MG 3d screening mammo w/cad. June 15, 2018, bilateral MG 3d screening mammo w/cad. There are scattered fibroglandular densities. Finding: There are intermediate concern, suspicious grouped/clustered calcifications in the lower inner quadrant of the left breast, 6cm from the nipple. Increase in size and increase in number of calcifications since July 02, 2019 and June 15, 2018. ASSESSMENT: Incomplete: need additional imaging evaluation, BI-RAD 0 RECOMMENDATION: Special view mammogram of the left breast. [facility] will attempt to contact patient to return for supplemental views.
== END | disposition home or self-care (01) ==
LOC: RADMAMWWP 12:40
PROVIDERS: ATTEND Internal Medicine
DX: Z12.31 Encounter for screening mammogram for malignant neoplasm of breast (principal)
CPT/HCPCS: 77063; 77067

== ENCOUNTER → 2020-07-14 | Outpatient (CLI) | payer MEDICARE, BC ==
--- NOTE | 2020-07-14 15:08 | MM ---
Reason for exam: additional evaluation requested from abnormal screening. Last mammogram was performed less than 1 month ago. History: Patient is postmenopausal. Family history of breast cancer in maternal grandmother at age 50. Taking estrogen for 34 years beginning at age 50. Physical Findings: Nurse Summary: 0.5cm nodule in the left breast at 7/8 o'clock (nurse william). MG 3D Work Up W/Cad LT CC and MLO view(s) were taken of the left breast. Prior study comparison: July 03, 2020, bilateral MG 3d screening mammo w/cad. July 02, 2019, bilateral MG 3d screening mammo w/cad. There are scattered fibroglandular densities. Finding: There are typically benign grouped/clustered calcifications in the lower inner quadrant, anterior middle position of the left breast, increased in number but benign morphology. These results were verbally communicated with the patient and result sheet given to the patient on 07/14/20. ASSESSMENT: Incomplete: need additional imaging evaluation, BI-RAD 0 RECOMMENDATION: Ultrasound of the left breast. (palpable by nurse)
--- NOTE | 2020-07-14 15:08 | USB ---
Reason for exam: additional evaluation requested from abnormal screening. History: Patient is postmenopausal. Family history of breast cancer in maternal grandmother at age 50. Taking estrogen for 34 years beginning at age 50. US Breast Workup Limited LT Left limited breast ultrasound including focal area of concern, retroareolar and axilla demonstrates no cystic or solid lesion seen. These results were verbally communicated with the patient and result sheet given to the patient on 07/14/20. ASSESSMENT: Negative, BI-RAD 1 RECOMMENDATION: Return to routine screening mammogram schedule for both breasts.
== END | disposition home or self-care (01) ==
LOC: RADMAMWWP 14:08
PROVIDERS: ATTEND Family Medicine
DX: R92.8 Other abnormal and inconclusive findings on diagnostic imaging of breast (principal)
CPT/HCPCS: 77065; 76642; G0279; 77061

== ENCOUNTER → 2020-07-31 | Outpatient (CLI) | payer MEDICARE, BC ==
--- NOTE | 2020-07-31 17:04 | CT ---
EXAMINATION TYPE: CT brain wo con DATE OF EXAM: 07/31/2020 COMPARISON: None INDICATION: possibleTIA DLP: 961 mGycm, Automated exposure control for dose reduction was used. CONTRAST: None CT of the brain is performed utilizing 3 mm thick sections through the posterior fossa and 3 mm thick sections through the remaining calvarium. Study is performed within 24 hours of arrival to the hosp [facility]. No abnormal hyperdensity is present to suggest an acute intracranial hemorrhage. No mass lesion is evident. No acute infarcts are evident. There is subtle periventricular white matter hypodensity, likely on th e basis of chronic white matter ischemic changes. Ventricles and sulci are appropriate for the patient age. Paranasal sinuses and mastoid air cells within the [id number] are clear. IMPRESSIONS: 1. No acute intracranial process. 2. Mild periventricular white matter ischemic type changes.
== END | disposition home or self-care (01) ==
LOC: RADCTMAIN 15:53
PROVIDERS: ATTEND Psychiatry & Neurology Neurology
DX: I67.82 Cerebral ischemia (principal); I63.9 Cerebral infarction, unspecified
CPT/HCPCS: 70450

== ENCOUNTER → 2021-07-05 | Outpatient (CLI) | payer MEDICARE, BC ==
--- NOTE | 2021-07-07 11:25 | MM ---
Reason for exam: screening (asymptomatic). Last mammogram was performed 1 year ago. History: Patient is postmenopausal. Family history of breast cancer in maternal grandmother at age 50. Taking estrogen for 34 years beginning at age 50. Physical Findings: A clinical breast exam by your physician is recommended on an annual basis and results should be correlated with mammographic findings. MG 3D Screening Mammo W/Cad Bilateral CC and MLO view(s) were taken. Prior study comparison: July 03, 2020, bilateral MG 3d screening mammo w/cad. July 02, 2019, bilateral MG 3d screening mammo w/cad. June 15, 2018, bilateral MG 3d screening mammo w/cad. There are scattered fibroglandular densities. No significant changes when compared with prior studies. ASSESSMENT: Benign, BI-RAD 2 RECOMMENDATION: Routine screening mammogram of both breasts in 1 year.
== END | disposition home or self-care (01) ==
LOC: RADMAMWWP 13:05
PROVIDERS: ATTEND Internal Medicine
DX: Z12.31 Encounter for screening mammogram for malignant neoplasm of breast (principal); Z80.3 Family history of malignant neoplasm of breast
CPT/HCPCS: 77063; 77067

== ENCOUNTER → 2023-03-31 | Outpatient (CLI) | payer MEDICARE, BC ==
--- NOTE | 2023-04-01 05:20 | US ---
EXAMINATION TYPE: US kidneys/renal and bladder DATE OF EXAM: 03/31/2023 COMPARISON: NONE CLINICAL INDICATION: Female, 87 years old with history of N18.30 CHRONIC KIDNEY DISEASE, STAGE 3 UNSP ECIFIED; ckd stage 3 EXAM MEASUREMENTS: Right Kidney: 8.9x3.9x4.9 cm Left Kidney: 9.2x4.6x4.3 cm Right Kidney: No hydronephrosis or masses seen Left Kidney: No hydronephrosis or masses seen Bladder: wnl Bilateral Jets seen: Yes There is no evidence for hydronephrosis at this point in time. Increased cortical echogenicity bilat erally. No nephrolithiasis is seen. No masses are identified. The urinary bladder is adequately dis tended. Bilateral ureteral jets are seen. IMPRESSION: No hydronephrosis is seen bilaterally.
== END | disposition home or self-care (01) ==
LOC: RADUSWWP 15:55
PROVIDERS: ATTEND Internal Medicine
DX: N18.30 Chronic kidney disease, stage 3 unspecified (principal)
CPT/HCPCS: 76770

== ENCOUNTER 2023-06-25 08:30 | Observation (INO) | payer MEDICARE, BC ==
[2023-06-25] MEDS ORDERED: SODIUM CHLORIDE 0.9% 500 ML 500 ML IV STA (08:34)
--- NOTE | 2023-06-25 08:37 | ED ---
General Adult HPI - General Chief complaint: Chest Pain Stated complaint: Afib Time Seen by Provider: 06/25/23 08:30 Source: patient, EMS, RN notes reviewed, old records reviewed Mode of arrival: EMS Limitations: no limitations - History of Present Illness Initial comments: This is an 87-year-old female presents emergency Department with a past medical history significant for atrial fibrillation and hypothyroidism. Patient states this morning she woke up felt palpitations in her chest and normally when she gets the headache goes away after a few minutes but it didn't go away she called EMS. According to EMS the patient had a heart rate between 12/06/1950 and she did complain of a little achiness in the left arm for a repeat nitroglycerin as well as aspirin. Patient states she never had any chest pain or difficulty breathing or shortness of breath. Patient states is no achiness in her arm currently. Patient currently does not feel any palpitations. Patient denies any recent fever chills or cough. Patient states she did not take her morning atenolol but she didn't take her morning Synthroid. Patient denies any headache patient denies lightheadedness or dizziness. - Related Data Home Medications Medication Instructions Recorded Confirmed Aspirin [Adult Low Dose Aspirin EC] 81 mg PO DAILY 03/15/17 04/02/20 Atorvastatin Calcium [Lipitor] 20 mg PO Q2D 03/15/17 04/02/20 Clopidogrel Bisulfate [Plavix] 75 mg PO HS 03/15/17 04/02/20 Levothyroxine Sodium [Synthroid] 100 mcg PO DAILY 03/15/17 04/02/20 Losartan Potassium [Cozaar] 25 mg PO DAILY 03/15/17 04/02/20 Pioglitazone [Actos] 15 mg PO MOTH 03/15/17 04/02/20 atenoloL 25 mg PO DAILY 03/15/17 04/02/20 Estrogens, Conjugated [Premarin] 0.3 mg PO MOWEFR 03/31/20 04/02/20 Isosorbide Mononitrate ER [Imdur] 30 mg PO DAILY 03/31/20 04/02/20 Omeprazole [PriLOSEC] 20 mg PO AC-BRKFST 03/31/20 04/02/20 Previous Rx's Medication Instructions Recorded Nitroglycerin Sl Tabs [Nitrostat] 0.4 mg SUBLINGUAL Q5M PRN #100 tab 03/16/17 Allergies Allergy/AdvReac Type Severity Reaction Status Date / Time amoxicillin Allergy Rash/Hives Verified 06/25/23 08:36 Sulfa (Sulfonamide Allergy Rash/Hives Verified 06/25/23 08:36 Antibiotics) Review of Systems ROS Statement: Those systems with pertinent positive or pertinent negative responses have been documented in the HPI. ROS Other: All systems not noted in ROS Statement are negative. Past Medical History Past Medical History: Coronary Artery Disease (CAD), Chest Pain / Angina, Diabetes Mellitus, Hyperlipidemia, Hypertension, Thyroid Disorder, Vascular Disorder Additional Past Medical History / Comment(s): vertigo,"arrythmia-takes med to make heart beat stronger/slower", hiatal hernia, vison poor rt eye told" i have a crater" History of Any Multi-Drug Resistant Organisms: None Reported Past Surgical History: Cholecystectomy, Coronary Bypass/CABG, Hernia Repair, Hysterectomy Additional Past Surgical History / Comment(s): colonoscopy/polypectomy(benign), triple vessel cabg, sx for hiatal hernia , not sure if they took appendix w/ hysterectomy, lt cataract removed Past Anesthesia/Blood Transfusion Reactions: Motion Sickness Additional Past Anesthesia/Blood Transfusion Reaction / Comment(s): vertigo Past Psychological History: No Psychological Hx Reported Past Alcohol Use History: None Reported Past Drug Use History: None Reported - Past Family History Mother Family Medical History: CVA/TIA Father Additional Family Medical History / Comment(s): cerebral bleed General Exam - General Exam Comments Initial Comments: GENERAL: Patient is well-developed and well-nourished. Patient is nontoxic and well-hyd rated and is in no acute distress. ENT: Neck is soft and supple. No significant lymphadenopathy is noted. Oropharynx is clear. Moist mucous membranes. Neck has full range of motion without elicit ing any pain. EYES: The sclera were anicteric and conjunctiva were pink and moist. Extraocular mo vements were intact and pupils were equal round and reactive to light. Eyelids were unremarkable. PULMONARY: Unlabored respirations. Good breath sounds bilaterally. No audible rales rhonchi or wheezing was noted. CARDIOVASCULAR: There is a regular rate and rhythm without any murmurs gallops or rubs. ABDOMEN: Soft and nontender with normal bowel sounds. SKIN: Skin is clear with no lesions or rashes and otherwise unremarkable. NEUROLOGIC: Patient is alert and oriented x3. Cranial nerves II through XII are grossly intact. Motor and sensory are also intact. Normal speech, volume and content. Symmetrical smile. MUSCULOSKELETAL: Normal extremities with adequate strength and full range of motion. No lower extremity swelling or edema. No calf tenderness. LYMPHATICS: No significant lymphadenopathy is noted PSYCHIATRIC: Normal psychiatric evaluation. Limitations: no limitations Course Vital Signs 06/25/23 06/25/23 06/25/23 08:31 10:00 10:37 Temperature 98.2 F Pulse Rate 72 56 L 55 L Respiratory 18 14 18 Rate Blood Pressure 143/82 147/57 134/51 O2 Sat by Pulse 96 98 96 Oximetry Medical Decision Making - Medical Decision Making EKG was interpreted by myself shows sinus rhythm at 71 bpm MI interval 272 QT interval 32 QTC is 44. Patient's EKG shows no ST segment elevation or depression. Was pt. sent in by a medical professional or institution (, PA, FOUNDRY SUPERVISOR, urgent care, hospital, or [facility]...) When possible be specific @ -No Did you speak to anyone other than the patient for history (EMS, parent, family, police, friend...)? What history was obtained from this source @ -No Did you review nursing and triage notes (agree or disagree)? Why? @ -I reviewed and agree with nursing and triage notes Were old charts reviewed (outside hosp., previous admission, EMS record, old E KG, old radiological studies, urgent care reports/EKG's, [facility] records)? Report findings @ -I reviewed prior to prior lab work on this patient Differential Diagnosis (chest pain, altered mental status, abdominal pain women, abdominal pain men, vaginal bleeding, weakness, fever, dyspnea, syncope, headache, dizziness, GI bleed, back pain, seizure, CVA, palpatations, mental health, musculoskeletal)? @ -Differential Palpitations Ventricular arrhythmias, atrial arrhythmias, myocardial infarction, anemia, thyrotoxicosis, electrolyte imbalance, hypokalemia, pulmonary embolism, pulmonary disease, drugs, alcohol, anxiety, stress.... This is not meant to be an all-inclusive list. EKG interpreted by me (3pts min.). @ -As above X-rays interpreted by me (1pt min.). @ -Chest x-ray shows no acute abnormality CT interpreted by me (1pt min.). @ -None done U/S interpreted by me (1pt. min.). @ -None done What testing was considered but not performed or refused? (CT, X-rays, U/S, labs)? Why? @ -None What meds were considered but not given or refused? Why? @ -None Did you discuss the management of the patient with other professionals (professionals i.e. DrVern, PA, FOUNDRY SUPERVISOR, lab, RT, psych nurse, clinical social work aide, yard cleaner, teacher, public health officer, piano case maker)? Give summary @ -I spoke with Dr. Soares she agreed to admit the patient admitted the patient Was smoking cessation discussed for >3mins.? @ -No Was critical care preformed (if so, how long)? @ -No Were there social determinants of health that impacted care today? How? (Homelessness, low income, unemployed, alcoholism, drug addiction, transportation, low edu. Level, literacy, decrease access to med. care, retirement, rehab)? @ -No Was there de-escalation of care discussed even if they declined (Discuss DNR or withdrawal of care, Hospice)? DNR status @ -No What co-morbidities impacted this encounter? (DM, HTN, Smoking, COPD, CAD, Cancer, CVA, ARF, Chemo, Hep., AIDS, mental health diagnosis, sleep apnea, morbid obesity)? @ -None Was patient admitted / discharged? Hospital course, mention meds given and rout e, prescriptions, significant lab abnormalities, going to OR and other pertinent info. @ -Patient was in A. fib at 130-[address] in. Patient arrived she was longer in A. fib. Patient was given her morning dose of atenolol while she was here. Patient did say she had chest heaviness and arm discomfort which was relieved by nitroglycerin home. Patient states is the same pain she had prior to her bypass surgery. Lab work looked essentially normal patient was no longer in any distress and no longer in A. fib. I spoke with Dr. Soares she agreed with the patient admitted the patient wrote admitting orders Undiagnosed new problem with uncertain prognosis? @ -No Drug Therapy requiring intensive monitoring for toxicity (Heparin, Nitro, Insulin, Cardizem)? @ -No Were any procedures done? @ -No Diagnosis/symptom? @ -Chest pain Acute, or Chronic, or Acute on Chronic? @ -Acute Uncomplicated (without systemic symptoms) or Complicated (systemic symptoms)? @ -Complicated Side effects of treatment? @ -No Exacerbation, Progression, or Severe Exacerbation? @ -No Poses a threat to life or bodily function? How? (Chest pain, [place], [place], pneumonia, PE, COPD, DKA, ARF, appy, cholecystitis, CVA, Diverticulitis, Homicidal, Suicidal, threat to staff... and all critical care pts) @ -Yes this could lead to an [place] and end organ dysfunction - Lab Data Result diagrams: 06/25/23 08:43 Lab Results 06/25/23 06/25/23 06/25/23 Range/Units 08:43 08:43 08:43 WBC 6.6 (3.8-10.6) k/uL RBC 4.26 (3.80-5.40) m/uL Hgb 12.6 (11.4-16.0) gm/dL Hct 38.8 (34.0-46.0) % MCV 91.1 (80.0-100.0) fL MCH 29.5 (25.0-35.0) pg MCHC 32.4 (31.0-37.0) g/dL RDW 14.4 (11.5-15.5) % Plt Count 229 (150-450) k/uL MPV 7.8 Neutrophils % 56 % Lymphocytes % 31 % Monocytes % 8 % Eosinophils % 3 % Basophils % 0 % Neutrophils # 3.7 (1.3-7.7) k/uL Lymphocytes # 2.1 (1.0-4.8) k/uL Monocytes # 0.5 (0-1.0) k/uL Eosinophils # 0.2 (0-0.7) k/uL Basophils # 0.0 (0-0.2) k/uL PT 10.3 (9.0-12.0) sec INR 1.0 (<1.2) APTT 24.1 (22.0-30.0) sec Troponin I <0.012 (0.000-0.034) ng/mL Disposition Clinical Impression: Chest pain Disposition: ADMITTED IP TO THIS [facility] Referrals: John Beck MD [Primary Care Provider] - 1-2 days Time of Disposition: 10:39
[2023-06-25] MEDS ORDERED: atenoloL 25 MG TAB PO STA (08:52)
[2023-06-25 09:00] LABS: Basophils % (A) 0 %; Eosinophils # (A) 0.2 k/uL (0-0.7); Eosinophils % (A) 3 %; HCT 38.8 % (34.0-46.0); HGB 12.6 gm/dL (11.4-16.0); Lymphocytes # (A) 2.1 k/uL (1.0-4.8); Lymphocytes % (A) 31 %; MCH 29.5 pg (25.0-35.0); MCHC 32.4 g/dL (31.0-37.0); MCV 91.1 fL (80.0-100.0); Mean Platelet Volume 7.8; Monocytes # (A) 0.5 k/uL (0-1.0); Monocytes % (A) 8 %; Neutrophils # (A) 3.7 k/uL (1.3-7.7); Neutrophils % (A) 56 %; Platelet Count 229 k/uL (150-450); RBC 4.26 m/uL (3.80-5.40); RDW 14.4 % (11.5-15.5); WBC 6.6 k/uL (3.8-10.6)
--- NOTE | 2023-06-25 09:19 | XR ---
EXAMINATION TYPE: XR chest 2V DATE OF EXAM: 06/25/2023 9:06 AM COMPARISON: CT chest 06/09/2020, chest radiograph 03/28/2018 TECHNIQUE: XR chest 2V Frontal and lateral views of the chest. CLINICAL INDICATION:Female, 87 years old with history of dysrhythmia; FINDINGS: Lungs/Pleura: There is no evidence of pleural effusion, focal consolidation, or pneumothorax. Pulmonary vascularity: Unremarkable. Heart/mediastinum: Cardiomediastinal silhouette is prominent in size. Atherosclerotic calcifications are seen in the aorta. Post CABG changes. Musculoskeletal: No acute osseous pathology. Midline sternotomy wires are noted and stable. IMPRESSION: Chronic changes without evidence for acute process.
[2023-06-25 09:27] LABS: Partial Thromboplastin Time 24.1 sec (22.0-30.0); Prothrombin Time 10.3 sec (9.0-12.0)
[2023-06-25] MEDS ORDERED: NITROGLYCERIN SL TABS 0.4 MG TAB SUBLINGUAL PRN (10:40)
[2023-06-25 10:47] LABS: ALT 21 U/L (4-34); AST 42 U/L (14-36); African American GFR (CKD) 84 (>60 ml/min/1.73 sqM); Alkaline Phosphatase 66 U/L (38-126); Anion Gap 9 mmol/L; Blood Urea Nitrogen 33 mg/dL (7-17); Calcium 9.7 mg/dL (8.4-10.2); Carbon Dioxide 21 mmol/L (22-30); Chloride 108 mmol/L (98-107); Glucose 113 mg/dL (74-99); Magnesium 1.9 mg/dL (1.6-2.3); Non-African American GFR(CKD) 73 (>60 ml/min/1.73 sqM); Sodium 138 mmol/L (137-145); Total Protein 7.9 g/dL (6.3-8.2)
[2023-06-25 10:52] LABS: Potassium 5.9 mmol/L (3.5-5.1)
[2023-06-25] MEDS: NITROGLYCERIN OINT 1 INCH/GM PACKET TOPICAL SCH ×3 (11:25→23:09)
[2023-06-25] MEDS ORDERED: DEXTROSE 50% SYRINGE 50 ML IVP PRN ×2 (13:10)
[2023-06-25] MEDS ORDERED: ONDANSETRON 4 MG/2 ML VIAL IVP PRN (13:11)
[2023-06-25] MEDS ORDERED: MELATONIN 3 MG TABLET PO PRN (13:11)
[2023-06-25] MEDS ORDERED: ACETAMINOPHEN TAB 325 MG TAB PO PRN (13:11)
[2023-06-25] MEDS ORDERED: NALOXONE 0.4 MG/ML 1 ML VIAL IVP PRN (13:11)
[2023-06-25] MEDS ORDERED: ATORVASTATIN 20 MG TAB PO SCH (13:15)
[2023-06-25] MEDS: APIXABAN 5 MG TAB PO SCH ×2 (13:48→20:58)
--- NOTE | 2023-06-25 15:09 | P.HPIM ---
History of Present Illness H&P Date: 06/25/23 Patient is an 87-year-old female with a history of atrial fibrillation on anticoagulation with Eliquis, hypertension, and coronary artery disease who presented to the hospital via EMS due to palpitations and chest pain. In the emergency department she underwent an extensive evaluation. On arrival to the ER her vital signs within normal limits. However EMS reports that she was having atrial fibrillation with rapid ventricular response at a rate of 130s to 150s during transport to the hospital. On arrival here laboratory analysis is markable for potassium of 5.1 (slight hemolysis), chloride 108, carbon dioxide 21, BUN 33, glucose 113, and ALT of 42. Troponin was negative at less than 0.012. EKG demonstrated normal sinus rhythm without any significant ST-T wave changes. Chest x-ray showed no acute process. Arrangements were made for admission due to her recent A. fib with RVR associated with chest discomfort. Patient seen and examined at bedside. She has a hx of atrial fibrilliation but today she was having palpitation for about 2 hours and it was not getting any better. She started having some pain in her left arm to her elbow and a heaviness in her chest/lower neck. She took some nitroglycerin at home which relieved this pain.. No SOB, no nausea, no light headedness. She did fell diaphoretic. She has not missed any doses of her medications. She follows with Dr. Blakely. She was cleaning more than usual yesterday. Vital signs reviewed General: nontoxic, no distress, appears at stated age Derm: warm, dry Eyes: EOMI, no lid lag, anicteric sclera ENT: Nose and ears atraumatic Cardiovascular: S1S2 reg, no murmur, positive posterior tibial pulse bilateral, no edema, Lungs: clear to auscultation bilateral, no rhonchi, no rales, no wheeze, no accessory muscle use Abdominal: soft, nontender to palpation, no guarding, no appreciable organomegaly, normal bowel sounds Ext: no gross muscle atrophy, no contractures Neuro: CN II-XII grossly intact, no focal neuro deficits Psych: Alert, oriented, appropriate affect Assessment/Plan: Atrial fibrillation with rapid ventricular response Chest pain History of coronary artery disease status post coronary artery bypass grafting -Trend troponin, check echo, follow telemetry -Resume Eliquis 5 mg twice daily and atenolol 25 mg twice daily -Consult cardiology -Aspirin 81 mg daily -Continue with nitro patch -Resume Imdur -Atorvastatin 20 mg every 48 hours, Cozaar 50 mg daily Diabetes mellitus type 2 -Hold by mouth clinic is on -Sliding-scale insulin -Follow blood sugars Imaging: As per HPI Data Review: As per HPI The patient is admitted with an anticipated less than 2 midnight stay for evaluation of chest pain and atrial fibrillation with rapid ventricular response.. DVT prophylaxis: Moni Discussed with: Patient, nursing Anticipated discharge date: in AM Anticipated discharge place: home This dictation was prepared using [employer] voice recognition software. Though every attempt is made to correct errors during dictation some may still exist. Past Medical History Past Medical History: Atrial Fibrillation, Coronary Artery Disease (CAD), Chest Pain / Angina, Diabetes Mellitus, Hyperlipidemia, Hypertension, Sleep Apnea/CPAP/BIPAP, Thyroid Disorder, Vascular Disorder Additional Past Medical History / Comment(s): Atrial fib, hiatal hernia, vison poor rt eye told, has MARLENE does not wear a CPAP or BiPap History of Any Multi-Drug Resistant Organisms: None Reported Past Surgical History: Cholecystectomy, Coronary Bypass/CABG, Hernia Repair, Hysterectomy Additional Past Surgical History / Comment(s): colonoscopy/polypectomy(benign), triple vessel cabg, sx for hiatal hernia , not sure if they took appendix w/ hysterectomy, lt cataract removed Past Anesthesia/Blood Transfusion Reactions: Motion Sickness Additional Past Anesthesia/Blood Transfusion Reaction / Comment(s): vertigo Past Psychological History: No Psychological Hx Reported Smoking Status: Never smoker Past Alcohol Use History: None Reported Past Drug Use History: None Reported - Past Family History Mother Family Medical History: CVA/TIA Father Additional Family Medical History / Comment(s): cerebral bleed Medications and Allergies Home Medications Medication Instructions Recorded Confirmed Type Atorvastatin Calcium [Lipitor] 20 mg PO Q48H 03/15/17 06/25/23 History Pioglitazone [Actos] 15 mg PO DIRECTED 03/15/17 06/25/23 History atenoloL 25 mg PO BID 03/15/17 06/25/23 History Isosorbide Mononitrate ER [Imdur] 30 mg PO DAILY 03/31/20 06/25/23 History Apixaban [Eliquis] 5 mg PO BID 06/25/23 06/25/23 History Cholecalciferol [Vitamin D3 (25 25 mcg PO DAILY 06/25/23 06/25/23 History Mcg = 1000 Iu)] Levothyroxine Sodium [Synthroid] 75 mcg PO AC-BRKFST 06/25/23 06/25/23 History Losartan [Cozaar] 50 mg PO DAILY 06/25/23 06/25/23 History Allergies Allergy/AdvReac Type Severity Reaction Status Date / Time amoxicillin Allergy Rash/Hives Verified 06/25/23 11:36 Sulfa (Sulfonamide Allergy Rash/Hives Verified 06/25/23 11:36 Antibiotics) Physical Exam Osteopathic Statement: *. No significant issues noted on an osteopathic structural exam other than those noted in the History and Physical/Consult. Vitals: Vital Signs Temp Pulse Resp BP Pulse Ox 06/25/23 11:27 55 L 18 137/65 97 06/25/23 10:37 55 L 18 134/51 96 06/25/23 10:00 56 L 14 147/57 98 06/25/23 08:31 98.2 F 72 18 143/82 96 Intake and Output 06/24/23 06/25/23 06/25/23 22:59 06:59 14:59 Intake Total 180 Balance 180 Intake: Oral 180 Other: Weight 81.647 kg Results CBC & Chem 7: 06/25/23 08:43 06/25/23 08:43 Labs: Abnormal Lab Results - Last 24 Hours (Table) 06/25/23 Range/Units 08:43 Potassium 5.9 H (3.5-5.1) mmol/L Chloride 108 H (98-107) mmol/L Carbon Dioxide 21 L (22-30) mmol/L BUN 33 H (7-17) mg/dL Glucose 113 H (74-99) mg/dL AST 42 H (14-36) U/L
[2023-06-25 16:46] LABS: Glucose,Whole Blood 87 mg/dL (70-110)
[2023-06-25] MEDS: INSULIN ASPART (NovoLOG) 100 UNIT/ML VIAL SQ SCH (17:13)
[2023-06-25 17:41] LABS: Magnesium 1.9 mg/dL (1.6-2.3); Potassium 4.5 mmol/L (3.5-5.1)
[2023-06-25 20:01] LABS: Glucose,Whole Blood 149 mg/dL (70-110)
[2023-06-25] MEDS ORDERED: atenoloL 25 MG TAB PO SCH (21:00)
[2023-06-26 06:07] LABS: Glucose,Whole Blood 99 mg/dL (70-110)
[2023-06-26] MEDS: NITROGLYCERIN OINT 1 INCH/GM PACKET TOPICAL SCH (06:15)
[2023-06-26] MEDS: LEVOTHYROXINE 75 MCG TAB PO SCH (06:19)
[2023-06-26] MEDS: INSULIN ASPART (NovoLOG) 100 UNIT/ML VIAL SQ SCH ×3 (06:20→17:07)
[2023-06-26] MEDS ORDERED: ASPIRIN 325 MG TAB PO SCH (09:00)
[2023-06-26 09:41] LABS: African American GFR (CKD) 70 (>60 ml/min/1.73 sqM); Blood Urea Nitrogen 27 mg/dL (7-17); Calcium 9.4 mg/dL (8.4-10.2); Carbon Dioxide 26 mmol/L (22-30); Glucose 103 mg/dL (74-99); Non-African American GFR(CKD) 61 (>60 ml/min/1.73 sqM)
[2023-06-26] MEDS: ISOSORBIDE MONONITRATE ER 30 MG TAB.ER.24H PO SCH (09:57)
[2023-06-26] MEDS: APIXABAN 5 MG TAB PO SCH ×2 (09:57→20:42)
[2023-06-26] MEDS: METOPROLOL TARTRATE 25 MG TAB PO SCH ×2 (09:58→20:42)
[2023-06-26] MEDS: CHOLECALCIFEROL 25 MCG (1000 IU) TABLET PO SCH (09:58)
[2023-06-26] MEDS: RANOLAZINE 500 MG TAB.ER.12H PO SCH ×2 (09:58→20:42)
[2023-06-26] MEDS: LOSARTAN 50 MG TAB PO SCH (09:58)
[2023-06-26] MEDS: ASPIRIN 81 MG PO SCH (09:58)
[2023-06-26 10:14] LABS: Anion Gap 6 mmol/L; Chloride 106 mmol/L (98-107); Potassium 4.7 mmol/L (3.5-5.1); Sodium 138 mmol/L (137-145)
[2023-06-26 11:20] LABS: Glucose,Whole Blood 186 mg/dL (70-110)
--- NOTE | 2023-06-26 11:25 | P.CRDCN ---
History of Present Illness History of present illness: HISTORY OF PRESENT ILLNESS: This is a 87-year-old female with a past medical history significant for coronary artery disease with previous CABG, paroxysmal atrial fibrillation, hypertension, hyperlipidemia, obstructive sleep apnea, diabetes. Patient follows in the office with Dr. Dai. We have been asked to see the patient in consultation for chest pain. Patient examined at the bedside. Patient states that yesterday morning she woke up and took her thyroid medication and then went back to lay down. She states she began to feel her heart racing and it felt i rregular. She states that she has been having palpitations 2-3 times a week recently but states it does not last very long and results once own. She states this time the palpitations lasted for approximately 2 hours. She also reports having some pain on the left side of her chest and underneath her left arm. She reports receiving nitro which helped with her pain. She denies pain or pressure at the time of examination. Denies shortness of breath. EKG on arrival revealed sinus mechanism. However patient was noted to be in atrial fibrillation with RVR by EMS report. * EKG reveals sinus mechanism with no signs of acute ischemia * Chest xray chronic changes without evidence for acute process * Laboratory data: WBC 6.6. Hemoglobin 12.6. Platelet count 229. Sodium 138. Potassium 4.7. BUN 27. Creatinine 0.86. Troponin negative 3 * Current home cardiac medications include Eliquis 5 mg twice a day, atenolol 25 mg twice a day, Lipitor 20 mg every 48 hours, Imdur 30 mg daily, losartan 50 mg daily * Most recent echocardiogram obtained in April 2023 ejection fraction 55%, mild aortic regurgitation, [id number] mitral regurgitation, mild tricuspid regurgitation * Cardiac catheterization history: March 2020 revealing right dominant no significant disease. LAD occluded in the midportion ostial left main has 35% narrowing. OM1 has 70%. OM1 okay, SVG to OM1 patent, HOBSON to LAD patent, OM to graft occluded, no gradient, slightly elevated filling pressures REVIEW OF SYSTEMS: At the time of my exam: CONSTITUTIONAL: Denies fever or chills. HEENT: Denies blurred vision, vision changes, or eye pain. Denies hemoptysis CARDIOVASCULAR: Denies chest pain. Denies orthopnea. Denies PND. Denies palpitations RESPIRATORY: Denies shortness of breath. GASTROINTESTINAL: Denies abdominal pain. Denies nausea or vomiting. HEMATOLOGIC: Denies bleeding disorders. GENITOURINARY: Denies any blood in urine. SKIN: Denies pruitis. Denies rash. PHYSICAL EXAM: VITAL SIGNS: Reviewed. GENERAL: Well-developed in no acute distress. HEENT: Head is normocephalic. Pupils are equal, round. Sclerae anicteric. Mucous membranes of the mouth are moist. Neck supple. No JVD or thyromegaly LUNGS: Respirations even and unlabored. Lungs essentially clear to auscultation bilaterally. HEART: Regular rate and rhythm. S1 and S2 heard. Systolic murmur noted ABDOMEN: Soft. Nondistended. Nontender. EXTREMITIES: Normal range of motion. No clubbing or cyanosis. Peripheral pulses intact. No lower extremity edema NEUROLOGIC: Awake and alert. Oriented x 3. ASSESSMENT: Chest pain, troponin negative x 3 Paroxysmal atrial fibrillation with RVR Coronary artery disease with previous CABG, 2012 Hypertension Hyperlipidemia Obstructive sleep apnea Diabetes PLAN: Obtain 2-D echo to assess cardiac structure and function Discontinue atenolol Begin metoprolol tartrate 25 mg twice a day Add Ranexa 500Q 12 hours Discussed stress testing with patient who is extremely adamant that she does not want to undergo stress testing at this time because she had a bad experience in the past with a stress test. Patient may be discharged home this afternoon from a cardiac standpoint Follow up post discharge with Dr. Dai Nurse practitioner note has been reviewed by physician. Signing provider agrees with the documented findings, assessment, and plan of care. Past Medical History Past Medical History: Atrial Fibrillation, Coronary Artery Disease (CAD), Chest Pain / Angina, Diabetes Mellitus, Hyperlipidemia, Hypertension, Sleep Apnea/CPAP/BIPAP, Thyroid Disorder, Vascular Disorder Additional Past Medical History / Comment(s): Atrial fib, hiatal hernia, vison poor rt eye told, has MARLENE does not wear a CPAP or BiPap History of Any Multi-Drug Resistant Organisms: None Reported Past Surgical History: Cholecystectomy, Coronary Bypass/CABG, Hernia Repair, Hysterectomy Additional Past Surgical History / Comment(s): colonoscopy/polypectomy(benign), triple vessel cabg, sx for hiatal hernia , not sure if they took appendix w/ hysterectomy, lt cataract removed Past Anesthesia/Blood Transfusion Reactions: Motion Sickness Additional Past Anesthesia/Blood Transfusion Reaction / Comment(s): vertigo Past Psychological History: No Psychological Hx Reported Smoking Status: Never smoker Past Alcohol Use History: None Reported Past Drug Use History: None Reported - Past Family History Mother Family Medical History: CVA/TIA Father Additional Family Medical History / Comment(s): cerebral bleed Medications and Allergies Home Medications Medication Instructions Recorded Confirmed Type Atorvastatin Calcium [Lipitor] 20 mg PO Q48H 03/15/17 06/25/23 History Pioglitazone [Actos] 15 mg PO MOTH 03/15/17 06/26/23 History atenoloL 25 mg PO BID 03/15/17 06/25/23 History Isosorbide Mononitrate ER [Imdur] 30 mg PO DAILY 03/31/20 06/25/23 History Apixaban [Eliquis] 5 mg PO BID 06/25/23 06/25/23 History Cholecalciferol [Vitamin D3 (25 25 mcg PO DAILY 06/25/23 06/25/23 History Mcg = 1000 Iu)] Levothyroxine Sodium [Synthroid] 75 mcg PO AC-BRKFST 06/25/23 06/25/23 History Losartan [Cozaar] 50 mg PO DAILY 06/25/23 06/25/23 History Allergies Allergy/AdvReac Type Severity Reaction Status Date / Time amoxicillin Allergy Rash/Hives Verified 06/25/23 11:36 Sulfa (Sulfonamide Allergy Rash/Hives Verified 06/25/23 11:36 Antibiotics) Physical Exam Vitals: Vital Signs Temp Pulse Pulse Resp BP BP Pulse Ox 06/26/23 07:54 98.5 F 58 L 18 124/69 97 06/26/23 04:00 97.7 F 45 L 16 138/78 96 06/25/23 23:06 97.7 F 53 L 14 141/79 96 06/25/23 20:00 98 F 62 18 139/78 95 06/25/23 16:00 61 18 149/75 95 06/25/23 14:00 62 18 06/25/23 12:00 62 18 132/59 95 06/25/23 11:27 55 L 18 137/65 97 06/25/23 10:37 55 L 18 134/51 96 06/25/23 10:00 56 L 14 147/57 98 Intake and Output 06/25/23 06/26/23 06/26/23 22:59 06:59 14:59 Intake Total 180 Balance 180 Intake: Oral 180 Other: Voiding Method Toilet Toilet # Voids 1 1 Results 06/25/23 08:43 06/26/23 08:16 Cardiac Enzymes 06/25/23 06/25/23 06/25/23 Range/Units 08:43 08:43 13:19 AST 42 H (14-36) U/L Troponin I <0.012 <0.012 (0.000-0.034) ng/mL 06/25/23 Range/Units 15:38 AST (14-36) U/L Troponin I <0.012 (0.000-0.034) ng/mL Coagulation 06/25/23 Range/Units 08:43 PT 10.3 (9.0-12.0) sec APTT 24.1 (22.0-30.0) sec CBC 06/25/23 Range/Units 08:43 WBC 6.6 (3.8-10.6) k/uL RBC 4.26 (3.80-5.40) m/uL Hgb 12.6 (11.4-16.0) gm/dL Hct 38.8 (34.0-46.0) % Plt Count 229 (150-450) k/uL Comprehensive Metabolic Panel 06/25/23 06/25/23 Range/Units 08:43 15:38 Sodium 138 (137-145) mmol/L Potassium 5.9 H 4.5 (3.5-5.1) mmol/L Chloride 108 H (98-107) mmol/L Carbon Dioxide 21 L (22-30) mmol/L BUN 33 H (7-17) mg/dL Creatinine 0.74 (0.52-1.04) mg/dL Glucose 113 H (74-99) mg/dL Calcium 9.7 (8.4-10.2) mg/dL AST 42 H (14-36) U/L ALT 21 (4-34) U/L Alkaline Phosphatase 66 (38-126) U/L Total Protein 7.9 (6.3-8.2) g/dL Albumin 4.0 (3.5-5.0) g/dL Current Medications Generic Name Dose Route Start Last Admin Trade Name Freq PRN Reason Stop Dose Admin Acetaminophen 650 mg 06/25/23 13:11 Acetaminophen Tab 325 Mg Tab PO Q6HR PRN Mild Pain or Fever > 100.5 Apixaban 5 mg 06/25/23 13:15 06/25/23 20:58 Apixaban 5 Mg Tab PO 5 mg BID LOW Administration Protocol Aspirin 81 mg 06/26/23 09:00 Aspirin 81 Mg PO DAILY [facility] Atenolol 25 mg 06/25/23 21:00 06/25/23 20:58 Atenolol 25 Mg Tab PO 25 mg BID [facility] Administration Atorvastatin Calcium 20 mg 06/25/23 13:15 06/25/23 13:49 Atorvastatin 20 Mg Tab PO 20 mg Q48H [facility] Administration Cholecalciferol 25 mcg 06/26/23 09:00 Cholecalciferol 25 Mcg (1000 Iu) Tablet PO DAILY [facility] Dextrose/Water 25 ml 06/25/23 13:10 Dextrose 50% Syringe 50 Ml IVP PER PROTOCOL PRN Hypoglycemia Protocol Dextrose/Water 50 ml 06/25/23 13:10 Dextrose 50% Syringe 50 Ml IVP PER PROTOCOL PRN Hypoglycemia Protocol Sodium Chloride 1,000 mls @ 50 mls/hr 06/25/23 15:15 Saline 0.9% IV .Q20H [facility] Insulin Aspart 0 unit 06/25/23 17:30 06/26/23 06:20 Insulin Aspart (Novolog) 100 Unit/Ml Vial SQ Not Given AC-TID [facility] Protocol Isosorbide Mononitrate 30 mg 06/26/23 09:00 Isosorbide Mononitrate Er 30 Mg Tab.Er.24h PO DAILY [facility] Levothyroxine Sodium 75 mcg 06/26/23 07:30 06/26/23 06:19 Levothyroxine 75 Mcg Tab PO 75 mcg AC-BRKFST [facility] Administration Losartan Potassium 50 mg 06/26/23 09:00 Losartan 50 Mg Tab PO DAILY [facility] Melatonin 3 mg 06/25/23 13:11 Melatonin 3 Mg Tablet PO HS PRN Insomnia Naloxone HCl 0.2 mg 06/25/23 13:11 Naloxone 0.4 Mg/Ml 1 Ml Vial IVP Q2M PRN Opioid Reversal Nitroglycerin 0.4 mg 06/25/23 10:40 Nitroglycerin Sl Tabs 0.4 Mg Tab SUBLINGUAL Q5M PRN Chest Pain Nitroglycerin 1 inch 06/25/23 12:00 06/26/23 06:15 Nitroglycerin Oint 1 Inch/Gm Packet TOPICAL 1 inch Q6HR LOW Administration Ondansetron HCl 4 mg 06/25/23 13:11 Ondansetron 4 Mg/2 Ml Vial IVP Q8HR PRN Nausea And Vomiting Intake and Output 06/25/23 06/26/23 06/26/23 22:59 06:59 14:59 Intake Total 180 Balance 180 Intake: Oral 180 Other: Voiding Method Toilet Toilet # Voids 1 1 06/25/23 08:43 06/25/23 15:38
--- NOTE | 2023-06-26 11:27 | P.PN ---
Subjective Progress Note Date: 06/26/23 Hospital course: Patient is a very pleasant 87-year-old female with a past medical history of CAD status post CABG 3, atrial fibrillation on anticoagulation with Eliquis, hypertension, hyperlipidemia, type II [id number] diabetes mellitus, and hypothyroidism. She presented to the emergency department on 06/25/23 with reports of chest pain and palpitations. Per documentation in chart patient was found by EMS in A. fib with RVR at a rate of 130s to 150s during transport to the hospital, however upon arrival to our facility patient had converted and was maintaining a controlled ventricular rate. EKG upon arrival to our facility showing normal sinus rhythm at 71 bpm with T-wave inversion in lateral lead aVL and no other significant T-wave or ST abnormalities upon personal review and interpretation. Chest x-ray completed in radiology report reviewed showing chronic changes without evidence for acute process. Labs were completed and reviewed. CBC unremarkable. Coagulation profile normal findings. BMP initially hemolyzed and repeated and upon repeat showing normal potassium at 4.5, hyperchloremia with chloride of 108, hypocarbia with bicarb of 21, normal a nion gap at 9 and mild prerenal azotemia with BUN of 33. Blood glucose levels were 149. Magnesium normal findings at 1.9. Liver profile showing slightly elevated AST of 42 otherwise normal findings. Troponin was negative at less than 0.012 and TSH also normal findings at 1.200. Patient was admitted under our services for consultation to cardiology. Physical exam: Patient seen and fully evaluated at bedside this morning. Patient slightly agitated regarding recommendations for stress testing. Patient reports previous history of "bad reaction to the medication" patient states she did not like the way it made her feel and that it took a little while before her heart with slow back down. Patient currently reports she is free from any chest pain, palpitations, shortness of breath, or experiencing any dizziness/lightheadedness at this time. Vital signs reviewed and stable. General: Nontoxic, no distress and appears stated age. Derm: Skin warm and dry, normal coloration for ethnicity. Head: Atraumatic, normocephalic and symmetric. Eyes: EOMs intact, no lid lag, and anicteric sclera Mouth: no lip lesions, mucus membranes moist Cardiovascular: regular rate and rhythm with normal S1S2, no murmur, positive posterior tibial pulses bilaterally, and cap refill < 2 seconds. Lungs: Respirations even, regular, and unlabored on room air. Lungs CTA bilaterally, no rhonchi, no rales, no wheezing, and no accessory muscle usage. Abdominal: soft, nontender to palpation, no guarding, no appreciable organomegaly Ext: ROM intact. No gross muscle atrophy, no edema, no contractures Neuro: Speech clear, face symmetrical and CN II-XII grossly intact with no noted focal neuro deficits Psych: Alert and oriented to person, place, time, and situation. Appropriate and pleasant affect. Assessment and Plan of Care: Atrial fibrillation with RVR Chest pain and palpitations, acute coronary event ruled out. CAD status post CABG Hypertension -Cardiology following and discussed plan of care with drawer in stitch bonding machine and cardiac PROJECT INSPECTOR. Latin Dancer recommending patient undergo stress test, patient adamantly refusing at this time. Cardiology aware and recommending echocardiogram be completed. -Telemetry monitoring -Troponins trended overnight and all negative at less than 0.0123 draws. -Cardiac diet -Continue cardiac medication regimen with Eliquis 5 mg twice daily, aspirin 81 mg daily, atorvastatin 20 mg every 48 hours, isosorbide mononitrate 30 mg daily, and losartan 50 mg daily. Patient was started on Ranexa 500 mg every 12 hours and atenolol was discontinued and patient started on metoprolol 25 mg twice daily. -Lipid profile was drawn and currently pending results. -Echocardiogram Prerenal azotemia, improving Metabolic acidosis, likely secondary to dehydration and resolved after IV fluid hydration. Metabolic acidosis resolved after gentle IV fluid hydration. Patient received a 500 mL bolus of 0.9% normal saline followed by infusion at 50 mL's per hour. Continue with gentle IV fluid hydration with 0.9% normal saline at 50 mL's per hour for an additional 24 hours and repeat BMP with a.m. labs. Type II [id number]-fzmilhspf diabetes mellitus Hold Actos and continue glycemic protocol with NovoLog sliding scale. Follow up on hemoglobin A1c results. Hypothyroidism TSH normal findings at 1.200. Continue daily medication regimen with levothyroxine 75 g daily. Data review: Troponins trended and reviewed and all were negative at less than 0.0123 draws. Morning labs completed and reviewed. BMP showing resolution of hyperchloremia with chloride decreasing down to 106, bicarb increasing to 26, and BUN decreasing down to 27. Vital signs reviewed and stable. Blood pressure 124/69, heart rate 58, respiratory rate 18, temp 98.5F, and SpO2 of 97% on room air. CODE STATUS: Full code DVT prophylaxis: Moni Discussed with: Pt, patient's at bedside, RN, drawer in stitch bonding machine, and cardiology PROJECT INSPECTOR Anticipated discharge date: Likely 24-[address]: home Patient was seen independently by Nurse Pracitioner. This document was prepared using [employer] dictation software. Please allow for errors in channeler insole, while rare they do occur. I reviewed the documentation as provided by the WHITNEY above, who is the original author of this note. I agree with the documented assessment and plan, with the following changes: none Objective - Vital Signs Vital signs: Vital Signs Temp 98.5 F 06/26/23 07:54 Pulse 58 L 06/26/23 07:54 Resp 18 06/26/23 07:54 BP 124/69 06/26/23 07:54 Pulse Ox 97 06/26/23 07:54 FiO2 Intake & Output 06/25/23 06/26/23 06/26/23 18:59 06:59 18:59 Intake Total 540 Balance 540 Weight 81.647 kg Intake: Oral 540 Other: Voiding Method Toilet Toilet # Voids 1 - Labs CBC & Chem 7: 06/25/23 08:43 06/26/23 08:16 Labs: Abnormal Lab Results - Last 24 Hours (Table) 06/25/23 06/25/23 Range/Units 08:43 20:00 Potassium 5.9 H (3.5-5.1) mmol/L Chloride 108 H (98-107) mmol/L Carbon Dioxide 21 L (22-30) mmol/L BUN 33 H (7-17) mg/dL Glucose 113 H (74-99) mg/dL POC Glucose (mg/dL) 149 H (70-110) mg/dL AST 42 H (14-36) U/L
[2023-06-26 16:37] LABS: Glucose,Whole Blood 109 mg/dL (70-110)
[2023-06-26 16:58] LABS: Chol/HDL Ratio 2.51 Ratio; LDL Cholesterol,Calculated 47.5 mg/dL (0.0-131.0); VLDL Calculation 19.86 mg/dL (5.00-40.00)
[2023-06-26] MEDS: SODIUM CHLORIDE 0.9% 1,000 ML IV SCH ×2 (17:06→17:07)
--- NOTE | 2023-06-26 19:37 | CA ---
Transthoracic Echo Report Name: lEoina Patel Age: 87 Gender: F : 1935 Exam Date: 06/26/2023 13:41 Exam Location: [facility] Ht (in): 63 Wt (lb): 180 Ordering Physician: Natali Soares DO Attending/Referring Phys: [id number], Rodger Textile Stylist Andrea Babb Procedure CPT: Indications: a fib Cardiac Hx: Technical Quality: Fair Contrast 1: Total Dose (mL): Contrast 2: Total Dose (mL): MEASUREMENTS (Male / Female) Normal Values 2D ECHO LV Diastolic Diameter PLAX 4.1 cm 4.2 - 5.9 / 3.9 - 5.3 cm LV Systolic Diameter PLAX 2.3 cm IVS Diastolic Thickness 1.0 cm 0.6 - 1.0 / 0.6 - 0.9 cm LVPW Diastolic Thickness 1.1 cm 0.6 - 1.0 / 0.6 - 0.9 cm LV Relative Wall Thickness 0.5 RV Internal Dim ED PLAX 2.7 cm LVOT Diameter 1.9 cm Aortic Root Diameter 3.0 cm LA Systolic Diameter LX 2.7 cm 3.0 - 4.0 / 2.7 - 3.8 cm LV Diastolic Volume MOD BP 33.9 cm??? 67 - 155 / 56 - 104 cm??? LV Systolic Volume MOD BP 9.5 cm??? - / 19 - 49 cm??? LV Ejection Fraction MOD BP 72.1 % >= 55 % LV Cardiac Index MOD BP 682.4 cm???/min???m??? LV Diastolic Volume MOD 4C 38.2 cm??? LV Systolic Volume MOD 4C 10.2 cm??? LV Ejection Fraction MOD 4C 73.4 % LV Cardiac Index MOD 4C 783.2 cm???/min???m??? LV Diastolic Length 4C 6.3 cm LV Systolic Length 4C 5.6 cm LV Diastolic Volume MOD 2C 29.3 cm??? LV Systolic Volume MOD 2C 7.9 cm??? LV Ejection Fraction MOD 2C 73.0 % LV Cardiac Index MOD 2C 597.5 cm???/min???m??? LV Diastolic Length 2C 6.1 cm LV Systolic Length 2C 5.0 cm LA Volume 37.2 cm??? 18 - 58 / 22 - 52 cm??? Ascending Aorta Diameter 3.0 cm DOPPLER AV Peak Velocity 116.8 cm/s AV Peak Gradient 5.5 mmHg AI Peak Velocity 270.6 cm/s AI Peak Gradient 29.3 mmHg AI Pressure Half Time 981.1 ms LVOT Peak Velocity 127.2 cm/s LVOT Peak Gradient 6.5 mmHg AV Area Cont Eq pk 3.1 cm??? MV Peak Velocity 111.8 cm/s MV Peak Gradient 5.0 mmHg MV Mean Velocity 55.8 cm/s MV Mean Gradient 1.6 mmHg MV Velocity Time Integral 47.9 cm MR Peak Velocity 267.1 cm/s MR Peak Gradient 28.5 mmHg Mitral E Point Velocity 82.1 cm/s Mitral A Point Velocity 115.0 cm/s Mitral E to A Ratio 0.7 MV Deceleration Time 413.6 ms MV E' Velocity 4.9 cm/s Mitral E to MV E' Ratio 16.9 TR Peak Velocity 187.4 cm/s TR Peak Gradient 14.1 mmHg Right Ventricular Systolic Press 19.7 mmHg PV Peak Velocity 98.2 cm/s PV Peak Gradient 3.9 mmHg FINDINGS Left Ventricle Normal LVsize and wall thickness. Left ventricular ejection fraction is estimated at 50-55 %. Right Ventricle Normal right ventricular size. RVSP= 26mmhg. Right Atrium Normal right atrial size. Left Atrium Normal left atrial size. LA Volume index= 20.1ml/m2 Mitral Valve Structurally normal mitral valve. Mild MR. Aortic Valve Trileaflet aortic valve. Mild AI. Tricuspid Valve Structurally normal tricuspid valve. Trace TR. Pulmonic Valve Pulmonic valve not well visualized. Mild to moderate PI. Pericardium Normal pericardium. Aorta Normal size aortic root and proximal ascending aorta. CONCLUSIONS Normal LV size and systolic function Previewed by: Dr. Israel Hines MD (Electronically Signed) Final Date: 26 June 2023 19:36
[2023-06-26 20:11] LABS: Glucose,Whole Blood 175 mg/dL (70-110)
[2023-06-27 05:39] LABS: Glucose,Whole Blood 99 mg/dL (70-110)
[2023-06-27] MEDS: INSULIN ASPART (NovoLOG) 100 UNIT/ML VIAL SQ SCH (06:20)
[2023-06-27] MEDS: SODIUM CHLORIDE 0.9% 1,000 ML IV SCH (06:29)
[2023-06-27] MEDS: LEVOTHYROXINE 75 MCG TAB PO SCH (06:34)
[2023-06-27] MEDS: METOPROLOL TARTRATE 25 MG TAB PO SCH (08:21)
[2023-06-27] MEDS: ISOSORBIDE MONONITRATE ER 30 MG TAB.ER.24H PO SCH (08:21)
[2023-06-27] MEDS: ASPIRIN 81 MG PO SCH (08:21)
[2023-06-27] MEDS: CHOLECALCIFEROL 25 MCG (1000 IU) TABLET PO SCH (08:21)
[2023-06-27] MEDS: LOSARTAN 50 MG TAB PO SCH (08:21)
[2023-06-27] MEDS: APIXABAN 5 MG TAB PO SCH (08:22)
[2023-06-27] MEDS: RANOLAZINE 500 MG TAB.ER.12H PO SCH (08:22)
[2023-06-27 08:24] VITALS: BP 134/61; PULSE 61; RESP 16; TEMP 98.2
[2023-06-27 09:04] LABS: African American GFR (CKD) 66 (>60 ml/min/1.73 sqM); Anion Gap 8 mmol/L; Blood Urea Nitrogen 26 mg/dL (7-17); Calcium 9.2 mg/dL (8.4-10.2); Carbon Dioxide 26 mmol/L (22-30); Chloride 103 mmol/L (98-107); Glucose 128 mg/dL (74-99); Magnesium 1.8 mg/dL (1.6-2.3); Non-African American GFR(CKD) 58 (>60 ml/min/1.73 sqM); Potassium 4.4 mmol/L (3.5-5.1); Sodium 137 mmol/L (137-145)
--- NOTE | 2023-06-27 09:52 | P.DS ---
Providers Date of admission: 06/25/23 10:40 Expected date of discharge: 06/27/23 Attending physician: Natali Soares DO Consults: 06/25/23 10:40 Consult Physician Urgent Consulting Provider: [facility] Consult Reason/Comments: Chest pain Do you want consulting provider notified?: Yes Primary care physician: John Beck MD Hospital Course: Discharge Diagnosis: Atrial fibrillation with RVR. Patient maintaining sinus mechanism at this time. Medication changes made. Atenolol 25 mg twice daily was discontinued and patient started on metoprolol 25 mg daily and to continue anticoagulant use with Eliquis 5 mg twice daily. Chest pain and palpitations, acute coronary event ruled out. In addition to being started on metoprolol 25 mg twice daily patient also started on Ranexa 500 mg every 12 hours and to continue daily cardiac medication regimen with isosorbide mononitrate 30 mg daily, losartan 50 mg daily, atorvastatin 20 mg every 24 hours and Eliquis 5 mg twice daily. CAD status post CABG. echocardiogram was completed showing preserved EF of 50-55 %. Hypertension, stable on current medication regimen. Patient to continue with metoprolol 25 mg twice daily, isosorbide mononitrate 30 mg daily, and losartan 50 mg daily. Prerenal azotemia, improved Metabolic acidosis, likely secondary to dehydration and resolved after IV fluid hydration. Type II rwo-[id number] diabetes mellitus. Hemoglobin A1c of 6.7%. Patient to continue heart healthy and carb consistent diet along with Actos as previously prescribed. Hypothyroidism. TSH normal findings at 1.200. Continue daily medication regimen with levothyroxine 75 g daily. Hospital Course: Patient is a very pleasant 87-year-old female with a past medical history of CAD status post CABG 3, atrial fibrillation on anticoagulation with Eliquis, hypertension, hyperlipidemia, type II [id number]-jpwuwwbaj diabetes mellitus, and hypothyroidism. She presented to the emergency department on 06/25/23 with reports of chest pain and palpitations. Per documentation in chart patient was found by EMS in A. fib with RVR at a rate of 130s to 150s during transport to the hospital, however upon arrival to our facility patient had converted and was maintaining a controlled ventricular rate. EKG upon arrival to our facility showing normal sinus rhythm at 71 bpm with T-wave inversion in lateral lead aVL and no other significant T-wave or ST abnormalities upon personal review and interpretation. Chest x-ray completed in radiology report reviewed showing chronic changes without evidence for acute process. Labs were completed and reviewed. CBC unremarkable. Coagulation profile normal findings. BMP initially hemolyzed and repeated and upon repeat showing normal potassium at 4.5, hyperchloremia with chloride of 108, hypocarbia with bicarb of 21, normal anion gap at 9 and mild prerenal azotemia with BUN of 33. Blood glucose levels were 149. Magnesium normal findings at 1.9. Liver profile showing slightly elevated AST of 42 otherwise normal findings. Troponin was negative at less than 0.012 and TSH also normal findings at 1.200. Patient was admitted under our services for consultation to cardiology. Cardiology was recommending a stress test, however patient declined stating she would never have another stress test. Cardiology discontinued patient's atenolol and started her on metoprolol 25 mg twice daily in addition to Ranexa 500 mg twice daily. Patient converted back into sinus mechanism and had full resolution of previous reported chest pain and palpitations. Echocardiogram was completed showing a preserved EF of 50-55%. Cardiology recommending outpatient follow-up in our office in one week. Medically, patient is stable for discharge and reports being free from any complaints, needs or concerns at this time. Prescriptions for metoprolol and Ranexa were sent to [facility]. Patient to follow up outpatient with PCP in 1-2 days and cardiology in 1 week. Physical exam: Vital signs reviewed and stable. General: Nontoxic, no distress and appears stated age. Derm: Skin warm and dry, normal coloration for ethnicity. Head: Atraumatic, normocephalic and symmetric. Eyes: EOMs intact, no lid lag, and anicteric sclera Mouth: no lip lesions, mucus membranes moist Cardiovascular: regular rate and rhythm with normal S1S2, no murmur, positive posterior tibial pulses bilaterally, and cap refill < 2 seconds. Lungs: Respirations even, regular, and unlabored on room air. Lungs CTA bilaterally, no rhonchi, no rales, no wheezing, and no accessory muscle usage. Abdominal: soft, nontender to palpation, no guarding, no appreciable organomegaly Ext: ROM intact. No gross muscle atrophy, no edema, no contractures Neuro: Speech clear, face symmetrical and CN II-XII grossly intact with no noted focal neuro deficits Psych: Alert and oriented to person, place, time, and situation. Appropriate and pleasant affect. A total of 35 minutes of time were spent preparing this complex discharge summary. Pt was discharged on 06/27/23 at 9:47 AM. Patient was seen independently by Nurse Practitioner. This document was prepared using [employer] dictation software. Please allow for errors in hoseman while rare they do occur. I reviewed the documentation as provided by the WHITNEY above, who is the original author of this note. I agree with the documented assessment and plan, with the following changes: none Patient Condition at Discharge: Stable Plan - Discharge Summary New Discharge Prescriptions: New Metoprolol Tartrate [Lopressor] 25 mg PO BID 30 Days #60 tab Ranolazine [Ranexa] 500 mg PO Q12HR 30 Days #60 tab Continue Pioglitazone [Actos] 15 mg PO MOTH Atorvastatin Calcium [Lipitor] 20 mg PO Q48H Isosorbide Mononitrate ER [Imdur] 30 mg PO DAILY Cholecalciferol [Vitamin D3 (25 Mcg = 1000 Iu)] 25 mcg PO DAILY Apixaban [Eliquis] 5 mg PO BID Losartan [Cozaar] 50 mg PO DAILY Levothyroxine Sodium [Synthroid] 75 mcg PO AC-BRKFST Discontinued atenoloL 25 mg PO BID Discharge Medication List Atorvastatin Calcium [Lipitor] 20 mg PO Q48H 03/15/17 [History] Pioglitazone [Actos] 15 mg PO MOTH 03/15/17 [History] Isosorbide Mononitrate ER [Imdur] 30 mg PO DAILY 03/31/20 [History] Apixaban [Eliquis] 5 mg PO BID 06/25/23 [History] Cholecalciferol [Vitamin D3 (25 Mcg = 1000 Iu)] 25 mcg PO DAILY 06/25/23 [History] Levothyroxine Sodium [Synthroid] 75 mcg PO AC-BRKFST 06/25/23 [History] Losartan [Cozaar] 50 mg PO DAILY 06/25/23 [History] Metoprolol Tartrate [Lopressor] 25 mg PO BID 30 Days #60 tab 06/27/23 [Rx] Ranolazine [Ranexa] 500 mg PO Q12HR 30 Days #60 tab 06/27/23 [Rx] Follow up Appointment(s)/Referral(s): Megha Dai MD [STAFF PHYSICIAN] - 07/05/23 10:45 am (Monday) John Beck MD [Primary Care Provider] - 07/04/23 5:40 pm (Monday) Patient Instructions/Handouts: A-fib (Atrial Fibrillation) (DC) Activity/Diet/Wound Care/Special Instructions: Activity: As tolerated. Take breaks as needed. Diet: Heart healthy and carb consistent diet. Avoid salts, or foods with hidden salts such as canned or boxed foods and frozen dinners. Extra salt makes your heart work harder and traps the fluid in your body for longer. Special Instructions: Take all of your medications as directed and remember to keep all of your doctor's appointments and follow-up as needed. Thank you for allowing us to participate in your care, it was truly a pleasure having you for our patient!!! Discharge Disposition: HOME SELF-CARE
[2023-06-27 11:31] LABS: Glucose,Whole Blood 101 mg/dL (70-110)
== END 2023-06-27 11:38 | disposition home or self-care (01) ==
LOC: EC 08:30 → INTOOBSV 10:40 → 3SCARD 10:40
PROVIDERS: ADMIT Internal Medicine; ATTEND Internal Medicine
DX: I48.0 Paroxysmal atrial fibrillation (principal); R07.9 Chest pain, unspecified; R00.2 Palpitations; R00.0 Tachycardia, unspecified; I25.10 Atherosclerotic heart disease of native coronary artery without angina pectoris; Z95.1 Presence of aortocoronary bypass graft; I10 Essential (primary) hypertension; R79.89 Other specified abnormal findings of blood chemistry; E87.20 Acidosis, unspecified; E86.0 Dehydration; E11.9 Type 2 diabetes mellitus without complications; E03.9 Hypothyroidism, unspecified; E78.5 Hyperlipidemia, unspecified; R74.01 Elevation of levels of liver transaminase levels; E87.5 Hyperkalemia; M79.602 Pain in left arm; G47.33 Obstructive sleep apnea (adult) (pediatric); Z79.84 Long term (current) use of oral hypoglycemic drugs; Z79.01 Long term (current) use of anticoagulants; Z79.899 Other long term (current) drug therapy; Z79.890 Hormone replacement therapy; Z88.2 Allergy status to sulfonamides; Z88.1 Allergy status to other antibiotic agents; Z82.3 Family history of stroke
CPT/HCPCS: 96360; 99285; 36415; 94760; 93005; 93306; 80061; 80053; 80048 ×2; 84443; 83735 ×2; 84132; 84484; 85025; 85610; 85730; 83036; 71046; G0378 ×3